=== PATIENT | female | born 1960 | race Caucasian/White ===

== ENCOUNTER → 2016-06-15 | Outpatient (REF) | payer BC, OTHER | LOC: M LAB REF 16:26 | PROVIDERS: ATTEND Physician Assistant | DX: R30.0 Dysuria (principal) ==

== ENCOUNTER → 2016-09-11 | Outpatient (CLI) | payer OTHER ==
[2016-09-11 13:49] LABS: BASO % 0.7 % (0.0-1.0); EOS # 0.1 K/mm3 (0.0-0.50); EOS % 1.9 % (0.0-3.0); LARGE UNSTAINED CELL # 0.1 K/mm3 (0.0-0.4); LARGE UNSTAINED CELL % 1.3 % (0.0-4.0); LYMPH # 1.7 K/mm3 (1.5-4.5); LYMPH % 28.6 % (24.0-44.0); MEAN CORPUSCULAR HEMOGLOBIN 31.3 pg (27.0-33.0); MEAN CORPUSCULAR HGB CONC 32.7 g/dl (32.0-36.5); MEAN CORPUSCULAR VOLUME 95.6 fl (80.0-96.0); MONO # 0.3 K/mm3 (0.0-0.8); NEUTROPHILS # 3.6 K/mm3 (1.8-7.7); NEUTROPHILS % 62.5 % (36.0-66.0); PLATELET COUNT, AUTOMATED 244 k/mm3 (150-450); RED CELL DISTRIBUTION WIDTH 12.4 % (11.5-14.5); WHITE BLOOD COUNT 5.7 K/mm3 (4.0-10.0)
[2016-09-11 14:07] LABS: ALBUMIN 3.8 GM/DL (3.2-5.2); ALBUMIN/GLOBULIN RATIO 1.23 (1.00-1.93); ALKALINE PHOSPHATASE 113 U/L (45-117); ALT/SGPT 21 U/L (12-78); ANION GAP 7 MEQ/L (8-16); AST/SGOT 19 U/L (15-37); BILIRUBIN,TOTAL 0.3 MG/DL (0.2-1.0); BLOOD UREA NITROGEN 15 MG/DL (7-18); CARBON DIOXIDE LEVEL 30 MEQ/L (21-32); CHLORIDE LEVEL 104 MEQ/L (98-107); CHOLESTEROL LEVEL 215 MG/DL (<200); CREATININE FOR GFR 0.83 MG/DL (0.55-1.02); GLOMERULAR FILTRATION RATE > 60.0 (>51); GLUCOSE, FASTING 103 MG/DL (70-105); POTASSIUM SERUM 4.7 MEQ/L (3.5-5.1); SODIUM LEVEL 141 MEQ/L (136-145); TOTAL PROTEIN 6.9 GM/DL (6.4-8.2); TRIGLYCERIDES LEVEL 195 MG/DL (<150)
== END ==
LOC: M WUC 08:48
PROVIDERS: ATTEND Nurse Practitioner Family
DX: I10 Essential (primary) hypertension (principal); E78.5 Hyperlipidemia, unspecified; E55.9 Vitamin D deficiency, unspecified

== ENCOUNTER → 2016-11-11 | Outpatient (REF) | payer OTHER | LOC: M LAB REF 17:37 | PROVIDERS: ATTEND Physician Assistant | DX: J02.9 Acute pharyngitis, unspecified (principal) ==

== ENCOUNTER → 2016-11-25 | Outpatient (REF) | payer OTHER | LOC: M LAB REF 17:16 | PROVIDERS: ATTEND Physician Assistant | DX: R30.0 Dysuria (principal) ==

== ENCOUNTER → 2017-03-19 | Outpatient (CLI) | payer OTHER | LOC: M WUC 10:11 | PROVIDERS: ATTEND Nurse Practitioner Family | DX: E78.5 Hyperlipidemia, unspecified (principal); E55.9 Vitamin D deficiency, unspecified ==

== ENCOUNTER 2017-06-03 19:00 | Observation (INO) | payer OTHER ==
[2017-06-03 19:42] LABS: BASO % 0.1 % (0.0-1.0); EOS # 0.1 10^3/uL (0.0-0.50); HEMATOCRIT 43.2 % (36.0-47.0); HEMOGLOBIN 14.7 g/dl (12.0-16.0); IMMATURE GRANULOCYTE # 0.1 10^3/uL (0-0); IMMATURE GRANULOCYTE % 0.4 % (0-0); LYMPH # 2.7 10^3/uL (1.5-4.5); LYMPH % 19.2 % (24.0-44.0); MEAN CORPUSCULAR HEMOGLOBIN 30.6 pg (27.0-33.0); MEAN CORPUSCULAR VOLUME 89.8 fl (80.0-96.0); MONO # 0.8 10^3/uL (0.0-0.8); NEUTROPHILS # 10.1 10^3/uL (1.8-7.7); NEUTROPHILS % 73.3 % (36.0-66.0); PLATELET COUNT, AUTOMATED 271 10^3/uL (150-450); RED BLOOD COUNT 4.81 10^6/uL (4.00-5.40); RED CELL DISTRIBUTION WIDTH 12.6 % (11.5-14.5); WHITE BLOOD COUNT 13.8 10^3/uL (4.0-10.0)
[2017-06-03 19:59] LABS: INR 0.92; PROTHROMBIN TIME 12.4 SECONDS (12.4-14.5)
[2017-06-03 20:09] LABS: ALBUMIN 4.1 GM/DL (3.2-5.2); ALBUMIN/GLOBULIN RATIO 1.05 (1.00-1.93); ALKALINE PHOSPHATASE 126 U/L (45-117); ALT/SGPT 24 U/L (12-78); ANION GAP 13 MEQ/L (8-16); AST/SGOT 26 U/L (7-37); BILIRUBIN,DIRECT < 0.1 MG/DL (0.0-0.2); BILIRUBIN,TOTAL 0.4 MG/DL (0.2-1.0); BLOOD UREA NITROGEN 35 MG/DL (7-18); CALCIUM LEVEL 9.9 MG/DL (8.5-10.1); CARBON DIOXIDE LEVEL 24 MEQ/L (21-32); CHLORIDE LEVEL 97 MEQ/L (98-107); CPK CREATINE PHOSPHOKINASE 111 U/L (26-192); CREATININE FOR GFR 1.23 MG/DL (0.55-1.30); GLOMERULAR FILTRATION RATE 48.1 (>51); GLUCOSE, FASTING 124 MG/DL (70-100); LIPASE 140 U/L (73-393); POTASSIUM SERUM 3.5 MEQ/L (3.5-5.1); SODIUM LEVEL 134 MEQ/L (136-145); TROPONIN I < 0.02 NG/ML (< 0.10)
[2017-06-03 20:12] LABS: LACTIC ACID SEPSIS PROTOCOL 3.1 MMOL/L (0.4-2.0)
[2017-06-03 20:14] LABS: CK-MB VALUE MASS 1.2 NG/ML (0.0-3.6); MB/CK RELATIVE INDEX 1.08 (< OR =4)
[2017-06-03] MEDS: ONDANSETRON 4MG/2ML VIAL (J2405) IV ×2 (20:30)
[2017-06-03] MEDS: DILUENT IV (20:36)
[2017-06-03] MEDS: NS IV (20:36)
[2017-06-03] MEDS: MORPHINE 4 MG/ML 1ML VIAL (J2270) IV ×6 (20:36→23:21)
[2017-06-03] MEDS ORDERED: ISOVUE-370 76% 100ML VIAL (Q9967) As Ordered ×2 (21:01)
[2017-06-03 21:50] LABS: KETONE, URINE AUTO RFX TRACE mg/dL (NEGATIVE); MUCUS, URINE RFX SMALL (NEGATIVE); NITRITE, URINE AUTO RFX NEGATIVE (NEGATIVE); RBC, URINE AUTO RFX 1 /HPF (0-3); SPECIFIC GRAVITY UR AUTO RFX 1.019 (1.002-1.035); SQUAM EPITHELIAL CELL UR AURFX 0 /HPF (0-6); WBC, URINE AUTO RFX 1 /HPF (0-3)
[2017-06-03 21:54] LABS: LEUKOCYTE ESTERASE UR AUTO RFX TRACE (NEGATIVE)
[2017-06-03] MEDS ORDERED: MORPHINE 4 MG/ML 1ML VIAL (J2270) As Ordered ×2 (22:32)
[2017-06-03] MEDS: HYOSCYAMINE SULFATE 0.125 MG SUBL TABLET PO ×2 (23:07)
[2017-06-04] MEDS: NS 1,000 ML IV ×6 (01:56→21:56)
[2017-06-04] MEDS: MORPHINE 4 MG/ML 1ML VIAL (J2270) IV ×2 (05:27)
[2017-06-04] MEDS: ONDANSETRON 4MG/2ML VIAL (J2405) IV ×2 (07:20)
[2017-06-04] MEDS: PANTOPRAZOLE 40MG INJ (PROTONIX) (C9113) IV ×4 (07:36→21:34)
[2017-06-04] MEDS: LISINOPRIL 40 MG TAB PO ×2 (08:45)
[2017-06-04] MEDS: busPIRone 10 MG TAB PO ×2 (08:47)
[2017-06-04] MEDS: amLODIPine 10 MG TAB PO ×2 (08:47)
[2017-06-04] MEDS: ENOXAPARIN 40 MG/0.4 ML SYRINGE (J1650) SC ×2 (08:48)
[2017-06-04] MEDS: METOPROLOL TART 25 MG TABLET PO ×4 (08:48→21:36)
[2017-06-04] MEDS: ACETAMINOPHEN TAB 650MG DOSE (2X325MG) PO ×2 (16:13)
[2017-06-04] MEDS: SIMVASTATIN 40 MG TAB PO ×2 (21:34)
[2017-06-04] MEDS: FLUoxetine 20 MG CAP PO ×2 (21:35)
[2017-06-05 07:04] LABS: BASO % 0.3 % (0.0-1.0); EOS # 0.1 10^3/uL (0.0-0.50); EOS % 2.4 % (0.0-3.0); HEMATOCRIT 38.1 % (36.0-47.0); IMMATURE GRANULOCYTE % 0.2 % (0-0); LYMPH # 2.1 10^3/uL (1.5-4.5); LYMPH % 35.2 % (24.0-44.0); MEAN CORPUSCULAR VOLUME 93.6 fl (80.0-96.0); MONO # 0.4 10^3/uL (0.0-0.8); MONO % 6.5 % (0.0-5.0); NEUTROPHILS # 3.2 10^3/uL (1.8-7.7); NEUTROPHILS % 55.4 % (36.0-66.0); PLATELET COUNT, AUTOMATED 224 10^3/uL (150-450); RED BLOOD COUNT 4.07 10^6/uL (4.00-5.40); RED CELL DISTRIBUTION WIDTH 12.9 % (11.5-14.5); WHITE BLOOD COUNT 5.8 10^3/uL (4.0-10.0)
[2017-06-05 07:11] LABS: HEMOGLOBIN 12.2 g/dl (12.0-16.0)
[2017-06-05 07:26] LABS: ANION GAP 7 MEQ/L (8-16); BLOOD UREA NITROGEN 13 MG/DL (7-18); CALCIUM LEVEL 8.7 MG/DL (8.5-10.1); CARBON DIOXIDE LEVEL 29 MEQ/L (21-32); CHLORIDE LEVEL 107 MEQ/L (98-107); CREATININE FOR GFR 0.97 MG/DL (0.55-1.30); GLOMERULAR FILTRATION RATE > 60.0 (>51); GLUCOSE, FASTING 114 MG/DL (70-100); POTASSIUM SERUM 4.2 MEQ/L (3.5-5.1); SODIUM LEVEL 143 MEQ/L (136-145)
[2017-06-05] MEDS: ACETAMINOPHEN TAB 650MG DOSE (2X325MG) PO ×2 (09:17)
[2017-06-05] MEDS: busPIRone 10 MG TAB PO ×2 (09:18)
[2017-06-05] MEDS: amLODIPine 10 MG TAB PO ×2 (09:18)
[2017-06-05] MEDS: METOPROLOL TART 25 MG TABLET PO ×4 (09:18→21:13)
[2017-06-05] MEDS: ENOXAPARIN 40 MG/0.4 ML SYRINGE (J1650) SC ×2 (09:18)
[2017-06-05] MEDS: LISINOPRIL 40 MG TAB PO ×2 (09:18)
[2017-06-05] MEDS: PANTOPRAZOLE 40MG INJ (PROTONIX) (C9113) IV ×2 (09:18)
[2017-06-05] MEDS: MIRALAX *UNIT DOSE* 17GM PACKET PO ×2 (12:55)
[2017-06-05 13:14] LABS: ALBUMIN 3.4 GM/DL (3.2-5.2); ALKALINE PHOSPHATASE 87 U/L (45-117); ALT/SGPT 17 U/L (12-78); AST/SGOT 17 U/L (7-37); BILIRUBIN,DIRECT < 0.1 MG/DL (0.0-0.2); BILIRUBIN,TOTAL 0.2 MG/DL (0.2-1.0); TOTAL PROTEIN 6.5 GM/DL (6.4-8.2)
[2017-06-05] MEDS: SIMVASTATIN 40 MG TAB PO ×2 (21:13)
[2017-06-05] MEDS: PANTOPRAZOLE 40MG TAB (PROTONIX) PO ×2 (21:13)
[2017-06-05] MEDS: FLUoxetine 20 MG CAP PO ×2 (21:13)
[2017-06-06] MEDS: ACETAMINOPHEN TAB 650MG DOSE (2X325MG) PO ×2 (03:34)
[2017-06-06 06:08] LABS: BASO % 0.5 % (0.0-1.0); EOS # 0.2 10^3/uL (0.0-0.50); EOS % 3.3 % (0.0-3.0); HEMATOCRIT 37.5 % (36.0-47.0); HEMOGLOBIN 12.5 g/dl (12.0-16.0); IMMATURE GRANULOCYTE % 0.2 % (0-3.0); LYMPH # 1.8 10^3/uL (1.5-4.5); LYMPH % 33.2 % (24.0-44.0); MEAN CORPUSCULAR HEMOGLOBIN 30.9 pg (27.0-33.0); MEAN CORPUSCULAR HGB CONC 33.3 g/dl (32.0-36.5); MEAN CORPUSCULAR VOLUME 92.6 fl (80.0-96.0); MONO # 0.4 10^3/uL (0.0-0.8); MONO % 7.3 % (0.0-5.0); NEUTROPHILS % 55.5 % (36.0-66.0); PLATELET COUNT, AUTOMATED 192 10^3/uL (150-450); RED BLOOD COUNT 4.05 10^6/uL (4.00-5.40); RED CELL DISTRIBUTION WIDTH 12.7 % (11.5-14.5); WHITE BLOOD COUNT 5.5 10^3/uL (4.0-10.0)
[2017-06-06 06:28] LABS: ANION GAP 9 MEQ/L (8-16); BLOOD UREA NITROGEN 10 MG/DL (7-18); CALCIUM LEVEL 8.8 MG/DL (8.5-10.1); CARBON DIOXIDE LEVEL 29 MEQ/L (21-32); CHLORIDE LEVEL 105 MEQ/L (98-107); CREATININE FOR GFR 0.87 MG/DL (0.55-1.30); GLOMERULAR FILTRATION RATE > 60.0 (>51); GLUCOSE, FASTING 116 MG/DL (70-100); POTASSIUM SERUM 4.2 MEQ/L (3.5-5.1); SODIUM LEVEL 143 MEQ/L (136-145)
[2017-06-06] MEDS: MIRALAX *UNIT DOSE* 17GM PACKET PO ×2 (09:17)
[2017-06-06] MEDS: MOM 30ML SUSPENSION UDC PO ×2 (09:17)
[2017-06-06] MEDS: PANTOPRAZOLE 40MG TAB (PROTONIX) PO ×2 (09:17)
[2017-06-06] MEDS: LISINOPRIL 40 MG TAB PO ×2 (09:17)
[2017-06-06] MEDS: busPIRone 10 MG TAB PO ×2 (09:18)
[2017-06-06] MEDS: amLODIPine 10 MG TAB PO ×2 (09:18)
[2017-06-06] MEDS: METOPROLOL TART 25 MG TABLET PO ×2 (09:18)
[2017-06-06] MEDS: ENOXAPARIN 40 MG/0.4 ML SYRINGE (J1650) SC ×2 (09:19)
== END 2017-06-06 11:23 | disposition home or self-care (01) ==
LOC: M ED INP 06-04 01:56 → M MS4PR 06-04 14:00 → M ED 19:00
DX: R10.13 Epigastric pain (principal); K80.20 Calculus of gallbladder without cholecystitis without obstruction; K83.8 Other specified diseases of biliary tract; K59.00 Constipation, unspecified; E87.2 Acidosis; D72.829 Elevated white blood cell count, unspecified; K76.0 Fatty (change of) liver, not elsewhere classified; R93.3 Abnormal findings on diagnostic imaging of other parts of digestive tract; I10 Essential (primary) hypertension; F32.9 Major depressive disorder, single episode, unspecified; F41.9 Anxiety disorder, unspecified; E66.01 Morbid (severe) obesity due to excess calories; E78.5 Hyperlipidemia, unspecified; Z79.899 Other long term (current) drug therapy; Z87.891 Personal history of nicotine dependence
CPT/HCPCS: C9113

== ENCOUNTER → 2017-07-02 | Outpatient (CLI) | payer OTHER ==
[2017-07-02 12:13] LABS: HEMATOCRIT 41.6 % (36.0-47.0); HEMOGLOBIN 13.2 g/dl (12.0-16.0); MEAN CORPUSCULAR HEMOGLOBIN 30.1 pg (27.0-33.0); MEAN CORPUSCULAR HGB CONC 31.7 g/dl (32.0-36.5); MEAN CORPUSCULAR VOLUME 94.8 fl (80.0-96.0); PLATELET COUNT, AUTOMATED 224 10^3/uL (150-450); RED BLOOD COUNT 4.39 10^6/uL (4.00-5.40); RED CELL DISTRIBUTION WIDTH 13.1 % (11.5-14.5); WHITE BLOOD COUNT 5.5 10^3/uL (4.0-10.0)
[2017-07-02 12:24] LABS: ALBUMIN 3.9 GM/DL (3.2-5.2); ALBUMIN/GLOBULIN RATIO 1.18 (1.00-1.93); ALKALINE PHOSPHATASE 107 U/L (45-117); ALT/SGPT 21 U/L (12-78); ANION GAP 8 MEQ/L (8-16); AST/SGOT 21 U/L (7-37); BILIRUBIN,TOTAL 0.3 MG/DL (0.2-1.0); BLOOD UREA NITROGEN 14 MG/DL (7-18); CALCIUM LEVEL 8.9 MG/DL (8.5-10.1); CARBON DIOXIDE LEVEL 28 MEQ/L (21-32); CHLORIDE LEVEL 107 MEQ/L (98-107); CHOLESTEROL LEVEL 199 MG/DL (<200); GLOMERULAR FILTRATION RATE > 60.0 (>51); GLUCOSE, FASTING 106 MG/DL (70-100); HDL CHOLESTEROL 67 MG/DL (>40); NON-HDL-C 132 MG/DL; POTASSIUM SERUM 4.1 MEQ/L (3.5-5.1); SODIUM LEVEL 143 MEQ/L (136-145); TOTAL PROTEIN 7.2 GM/DL (6.4-8.2); TRIGLYCERIDES LEVEL 180 MG/DL (<150)
== END ==
LOC: M WUC 08:58
DX: I10 Essential (primary) hypertension (principal); E78.5 Hyperlipidemia, unspecified
CPT/HCPCS: 80053

== ENCOUNTER 2017-07-26 08:02 | Day surgery (SDC) | payer OTHER ==
[2017-07-26] MEDS ORDERED: fentaNYL 250 MCG/5 ML INJECTION (J3010) As Ordered (08:26)
[2017-07-26] MEDS ORDERED: LIDOCAINE 2% INJ 100 MG/5 ML SDV (FOR ANES.) As Ordered (08:26)
[2017-07-26] MEDS ORDERED: MIDAZOLAM INJ 2 MG/2 ML VIAL (J2250) As Ordered (08:26)
[2017-07-26] MEDS ORDERED: PROPOFOL 200 MG/20 ML VIAL As Ordered (08:26)
[2017-07-26] MEDS ORDERED: ROCURONIUM BROMIDE 50 MG/5 ML VIAL As Ordered (08:26)
[2017-07-26] MEDS ORDERED: LIDOCAINE 1% MDV 20ML VIAL SQ (08:30)
[2017-07-26] MEDS: LR 1,000 ML IV (08:40)
[2017-07-26] MEDS: METOPROLOL TART 25 MG TABLET PO (09:43)
[2017-07-26] MEDS ORDERED: METOPROLOL TART 25 MG TABLET As Ordered (09:44)
[2017-07-26] MEDS ORDERED: NEOSTIGMINE 10 MG/10 ML VIAL (J2710) As Ordered (11:11)
[2017-07-26] MEDS ORDERED: GLYCOPYRROLATE INJ 0.2 MG/ML 2 ML VIAL As Ordered (11:11)
[2017-07-26] MEDS ORDERED: dexameTHASONE 4 MG/ML 1ML VIAL (J1100) As Ordered ×2 (11:13)
[2017-07-26] MEDS ORDERED: METOCLOPRAMIDE INJ 10MG/2ML VIAL (J2765) As Ordered (11:13)
[2017-07-26] MEDS ORDERED: ONDANSETRON 4MG/2ML VIAL (J2405) As Ordered (11:13)
[2017-07-26] MEDS ORDERED: KETOROLAC 60 MG/2 ML VIAL (J1885) As Ordered (11:13)
[2017-07-26] MEDS ORDERED: fentaNYL 100 MCG/2 ML INJECTION (J3010) As Ordered ×2 (11:27→11:49)
[2017-07-26] MEDS: BUPIVACAINE/EPIN 0.5% 30 ML VIAL As Ordered (11:29)
[2017-07-26] MEDS: fentaNYL 100 MCG/2 ML INJECTION (J3010) IV ×4 (11:45→12:00)
[2017-07-26] MEDS ORDERED: NORCO, ANEXSIA 5/325MG TABLET (HYDROcodone/ACETAMINOPHEN) As Ordered (12:06)
[2017-07-26] MEDS: NORCO, ANEXSIA 5/325MG TABLET (HYDROcodone/ACETAMINOPHEN) PO (12:07)
[2017-07-26] MEDS ORDERED: LR 1,000 ML IV (12:15)
[2017-07-26] MEDS ORDERED: NORCO, ANEXSIA 5/325MG TABLET (HYDROcodone/ACETAMINOPHEN) PO (12:15)
[2017-07-26] MEDS ORDERED: ONDANSETRON 4MG/2ML VIAL (J2405) IV (12:15)
== END 2017-07-26 14:00 | disposition home or self-care (01) ==
LOC: M SDC 08:02
DX: K80.20 Calculus of gallbladder without cholecystitis without obstruction (principal); I10 Essential (primary) hypertension; Z79.899 Other long term (current) drug therapy; R06.83 Snoring
CPT/HCPCS: 47562

== ENCOUNTER 2017-08-28 07:37 | Day surgery (SDC) | payer OTHER ==
[~2017-08-28 07:37] MED LIST: LIDOCAINE 2% INJ 100 MG/5 ML SDV (FOR ANES.) As Ordered; PROPOFOL 200 MG/20 ML VIAL As Ordered
[2017-08-28] MEDS: NS 1,000 ML IV (07:51)
[2017-08-28] MEDS ORDERED: PROPOFOL 200 MG/20 ML VIAL As Ordered ×2 (08:37→08:45)
[2017-08-28] MEDS ORDERED: ONDANSETRON 4MG/2ML VIAL (J2405) As Ordered (08:51)
== END 2017-08-28 09:31 | disposition home or self-care (01) ==
LOC: M OPP 07:37
DX: K64.1 Second degree hemorrhoids (principal); D12.5 Benign neoplasm of sigmoid colon; D12.2 Benign neoplasm of ascending colon; K57.30 Diverticulosis of large intestine without perforation or abscess without bleeding; K92.1 Melena; K80.20 Calculus of gallbladder without cholecystitis without obstruction; F32.9 Major depressive disorder, single episode, unspecified; R06.83 Snoring; Z79.899 Other long term (current) drug therapy; Z87.891 Personal history of nicotine dependence; Z78.0 Asymptomatic menopausal state; Z91.89 Other specified personal risk factors, not elsewhere classified; Z98.890 Other specified postprocedural states; Z80.0 Family history of malignant neoplasm of digestive organs; Z82.49 Family history of ischemic heart disease and other diseases of the circulatory system
CPT/HCPCS: 45385

== ENCOUNTER → 2018-01-07 | Outpatient (REF) | payer OTHER ==
[2018-01-07 11:25] LABS: HEMATOCRIT 40.7 % (36.0-47.0); HEMOGLOBIN 13.3 g/dl (12.0-15.5); MEAN CORPUSCULAR HEMOGLOBIN 31.5 pg (27.0-33.0); MEAN CORPUSCULAR HGB CONC 32.7 g/dl (32.0-36.5); MEAN CORPUSCULAR VOLUME 96.4 fl (80.0-96.0); PLATELET COUNT, AUTOMATED 250 10^3/uL (150-450); RED BLOOD COUNT 4.22 10^6/uL (4.00-5.40); WHITE BLOOD COUNT 6.5 10^3/uL (4.0-10.0)
[2018-01-07 12:21] LABS: ERYTHROCYTE SEDIMENTATION RATE 29 mm/hr (0-30)
[2018-01-07 12:38] LABS: ALBUMIN 4.2 GM/DL (3.2-5.2); ALKALINE PHOSPHATASE 124 U/L (45-117); ALT/SGPT 45 U/L (12-78); ANION GAP 11 MEQ/L (8-16); AST/SGOT 43 U/L (7-37); BILIRUBIN,TOTAL 0.4 MG/DL (0.2-1.0); BLOOD UREA NITROGEN 25 MG/DL (7-18); CALCIUM LEVEL 9.9 MG/DL (8.5-10.1); CARBON DIOXIDE LEVEL 25 MEQ/L (21-32); CHLORIDE LEVEL 104 MEQ/L (98-107); CHOLESTEROL LEVEL 237 MG/DL (<200); CHOLESTEROL RISK RATIO 2.821 (<5); CREATININE FOR GFR 1.01 MG/DL (0.55-1.30); FREE THYROXINE INDEX 3.8 % (1.3-4.8); GLOMERULAR FILTRATION RATE > 60.0 (>51); GLUCOSE, FASTING 111 MG/DL (70-100); HDL CHOLESTEROL 84 MG/DL (>40); LDL CHOLESTEROL 93 MG/DL (<100); NON-HDL-C 153 MG/DL; POTASSIUM SERUM 4.5 MEQ/L (3.5-5.1); RHEUMATOID FACTOR QUANT < 10.0 IU/ML (<15.0); SODIUM LEVEL 140 MEQ/L (136-145); T UPTAKE 30 % (30-39); THYROID STIMULATING HORMONE 0.886 uIU/ML (0.358-3.740); THYROXINE (T4) 12.5 UG/DL (4.5-12.0); TOTAL 25(OH) VITAMIN D 43.6 NG/ML (30.0-100.0); TOTAL PROTEIN 7.5 GM/DL (6.4-8.2); TRIGLYCERIDES LEVEL 302 MG/DL (<150)
[2018-01-07 13:49] LABS: ALBUMIN/GLOBULIN RATIO 1.27 (1.00-1.93)
[2018-01-08 14:19] LABS: ANTINUCLEAR ANTIBODIES DIRECT Negative (Negative)
== END ==
LOC: M SFHCCLAY 08:24
DX: M25.50 Pain in unspecified joint (principal); E78.5 Hyperlipidemia, unspecified; E55.9 Vitamin D deficiency, unspecified; G47.00 Insomnia, unspecified
CPT/HCPCS: 84443

== ENCOUNTER → 2018-01-29 | Outpatient (REF) | payer OTHER ==
[2018-01-29 12:25] LABS: MAGNESIUM LEVEL 2.2 MG/DL (1.8-2.4)
[2018-01-29 12:25] LABS: URIC ACID 9.5 MG/DL (2.6-6.0)
[2018-01-31 00:09] LABS: ANA (HEP2) Negative (.); Lyme Disease IgG/IgM Antibodie <0.91 ISR (0.00-0.90); Lyme Disease IgM Ab Quantitati <0.80 index (0.00-0.79)
== END ==
LOC: M SFHCCLAY 08:45
DX: M25.50 Pain in unspecified joint (principal)

== ENCOUNTER → 2018-01-29 | Outpatient (CLI) | payer OTHER | LOC: M CLY 09:02 | DX: M25.579 Pain in unspecified ankle and joints of unspecified foot (principal); M17.0 Bilateral primary osteoarthritis of knee | CPT/HCPCS: 73564 ==

== ENCOUNTER → 2018-01-30 | Outpatient (CLI) | payer OTHER | LOC: M WHC 14:22 | DX: Z12.31 Encounter for screening mammogram for malignant neoplasm of breast (principal) ==

== ENCOUNTER → 2018-03-04 | Outpatient (REF) | payer OTHER | LOC: M SFHCCLAY 16:32 | DX: N39.0 Urinary tract infection, site not specified (principal) ==

== ENCOUNTER → 2018-03-10 | Outpatient (REF) | payer OTHER ==
[2018-03-10 11:50] LABS: URIC ACID 6.7 MG/DL (2.6-6.0)
== END ==
LOC: M SFHCCLAY 07:51
DX: M10.9 Gout, unspecified (principal)

== ENCOUNTER → 2018-05-08 | Outpatient (REF) | payer OTHER ==
[~2018-05-08] MED LIST changes: +AMLO10TA5 PO; +BUSP10TA PO; +FLUO20CA8 PO; +HYDR25TAB PO; -LIDOCAINE 2% INJ 100 MG/5 ML SDV (FOR ANES.) As Ordered; +LISI40TA PO; +METO25TA4 PO; +PANT40TA3 PO; -PROPOFOL 200 MG/20 ML VIAL As Ordered; +SIMV40TA2 PO; +TYLE500T78 PO
[2018-05-08 12:27] LABS: ALBUMIN 4.1 GM/DL (3.2-5.2); BILIRUBIN,TOTAL 0.3 MG/DL (0.2-1.0); CALCIUM LEVEL 9.5 MG/DL (8.5-10.1); CHOLESTEROL RISK RATIO 3.555 (<5); CREATININE FOR GFR 1.38 MG/DL (0.55-1.30); POTASSIUM SERUM 4.6 MEQ/L (3.5-5.1); TOTAL PROTEIN 7.6 GM/DL (6.4-8.2); URIC ACID 8.1 MG/DL (2.6-6.0)
[2018-05-08 12:33] LABS: TOTAL 25(OH) VITAMIN D 46.2 NG/ML (30.0-100.0)
== END ==
LOC: M SFHCCLAY 08:04
PROVIDERS: ATTEND Nurse Practitioner Family
DX: R35.0 Frequency of micturition (principal); I10 Essential (primary) hypertension; E78.5 Hyperlipidemia, unspecified; M10.9 Gout, unspecified; E55.9 Vitamin D deficiency, unspecified

== ENCOUNTER → 2018-05-14 | Outpatient (CLI) | payer OTHER ==
--- NOTE | 2018-05-15 00:58 | REP ---
Clinical: Pain with recent trauma. Technique: AP and lateral views of the left tibia / fibula. Findings: Mild degenerative changes at the knee and ankle joint are appreciated. Small corticated fragments at the ankle suggest old trauma. No acute fracture or dislocation identified. No subcutaneous emphysema or radiodense foreign body. Impression: Degenerative changes at the knee and ankle with suggestions for old ankle injury. No acute fracture or dislocation identified.
== END ==
LOC: M CLY 12:38
PROVIDERS: ATTEND Nurse Practitioner Family
DX: M17.12 Unilateral primary osteoarthritis, left knee (principal); S89.92XA Unspecified injury of left lower leg, initial encounter; X58.XXXA Exposure to other specified factors, initial encounter; Y92.9 Unspecified place or not applicable

== ENCOUNTER → 2018-05-22 | Outpatient (REF) | payer OTHER | LOC: M SFHCCLAY 07:59 | PROVIDERS: ATTEND Nurse Practitioner Family | DX: N39.0 Urinary tract infection, site not specified (principal) ==

== ENCOUNTER → 2018-06-10 | Outpatient (CLI) | payer OTHER ==
--- NOTE | 2018-06-10 13:31 | REP ---
RENAL ULTRASOUND: Real-time sonographic evaluation of the kidneys are performed. The kidneys are normal in size and echotexture, right kidney measuring 11.2 x 4.7 x 4.8 cm and left kidney 11.9 x 6.0 x 6.4 cm. There is no hydronephrosis or renal mass bilaterally. Study is limited due to patient body habitus. Urinary bladder is empty. IMPRESSION: Grossly negative renal ultrasound. Electronically Signed by Milton Rodriguez MD 06/10/2018 05:26 P
== END ==
LOC: M RAD 11:53
PROVIDERS: ATTEND Internal Medicine Nephrology
DX: N18.3 Chronic kidney disease, stage 3 (moderate) (principal); I12.9 Hypertensive chronic kidney disease with stage 1 through stage 4 chronic kidney disease, or unspecified chronic kidney disease

== ENCOUNTER → 2018-08-01 | Outpatient (REF) | payer OTHER ==
[2018-08-01 18:08] LABS: CHOLESTEROL RISK RATIO 3.2 (<5); URIC ACID 8.8 MG/DL (2.6-6.0)
[2018-08-01 18:13] LABS: TOTAL 25(OH) VITAMIN D 51.4 NG/ML (30.0-100.0)
[2018-08-01 19:00] LABS: HEMOGLOBIN A1c 6.7 %
== END ==
LOC: M SFHCCLAY 10:01
PROVIDERS: ATTEND Nurse Practitioner Family
DX: R73.9 Hyperglycemia, unspecified (principal); E78.5 Hyperlipidemia, unspecified; M10.9 Gout, unspecified; E55.9 Vitamin D deficiency, unspecified

== ENCOUNTER → 2018-09-23 | Outpatient (REF) | payer OTHER ==
[2018-09-23 18:25] LABS: BASO % 0.4 % (0.0-1.0); EOS # 0.1 10^3/uL (0.0-0.50); EOS % 1.5 % (0.0-3.0); HEMATOCRIT 42.4 % (36.0-47.0); HEMOGLOBIN 13.1 g/dl (12.0-15.5); LYMPH # 2.2 10^3/uL (1.5-4.5); LYMPH % 33.3 % (24.0-44.0); MEAN CORPUSCULAR HEMOGLOBIN 30.4 pg (27.0-33.0); MEAN CORPUSCULAR HGB CONC 30.9 g/dl (32.0-36.5); MEAN CORPUSCULAR VOLUME 98.4 fl (80.0-96.0); MONO # 0.3 10^3/uL (0.0-0.8); MONO % 5.1 % (0.0-5.0); NEUTROPHILS % 59.4 % (36.0-66.0); PLATELET COUNT, AUTOMATED 257 10^3/uL (150-450); RED BLOOD COUNT 4.31 10^6/uL (4.00-5.40); WHITE BLOOD COUNT 6.7 10^3/uL (4.0-10.0)
== END ==
LOC: M LAB REF 17:08
PROVIDERS: ATTEND Internal Medicine Nephrology
DX: I12.9 Hypertensive chronic kidney disease with stage 1 through stage 4 chronic kidney disease, or unspecified chronic kidney disease (principal); N18.3 Chronic kidney disease, stage 3 (moderate)

== ENCOUNTER → 2018-11-07 | Outpatient (CLI) | payer OTHER ==
[~2018-11-07] MED LIST changes: +ACET-897 PO; +ATOR40TA75 PO; +DRIS50003 PO
[2018-11-07 13:45] LABS: HEMOGLOBIN A1c 7.2 %
[2018-11-07 13:49] LABS: ALBUMIN 3.9 GM/DL (3.2-5.2); BILIRUBIN,DIRECT 0.1 MG/DL (0.0-0.2); BILIRUBIN,TOTAL 0.5 MG/DL (0.2-1.0); CHOLESTEROL RISK RATIO 2.718 (<5); TOTAL PROTEIN 7.3 GM/DL (6.4-8.2); URIC ACID 9.3 MG/DL (2.6-6.0)
[2018-11-07 13:50] LABS: TOTAL 25(OH) VITAMIN D 49.9 NG/ML (30.0-100.0)
[2018-11-07 13:55] LABS: MALB URINE SIEMENS 12.3 MG/L; MAU/CREAT RATIO 5.8 MCG/MG (0.0-30.0)
== END ==
LOC: M WUC 08:21
PROVIDERS: ATTEND Nurse Practitioner Family
DX: E78.5 Hyperlipidemia, unspecified (principal)

== ENCOUNTER 2018-11-24 11:22 | Day surgery (SDC) | payer OTHER ==
[~2018-11-24] VITALS: Ht 170.2 cm; Wt 130.7 kg
[~2018-11-24 11:22] MED LIST changes: +LR 1,000 ML IV ONE; +ROPIvacaine 0.5% 30 ML INJECTION (J2795 PER 1MG) As Ordered ONE
[2018-11-24] MEDS ORDERED: ONDANSETRON 4MG/2ML VIAL (J2405) As Ordered ONE ×2 (11:42→12:19)
[2018-11-24] MEDS ORDERED: LIDOCAINE 2% INJ 100 MG/5 ML SDV (FOR ANES.) As Ordered ONE ×2 (11:42→12:19)
[2018-11-24] MEDS ORDERED: fentaNYL 100 MCG/2 ML INJECTION (J3010) As Ordered ONE ×2 (11:42→12:20)
[2018-11-24] MEDS ORDERED: dexameTHASONE 4 MG/ML 1ML VIAL (J1100) As Ordered ONE ×2 (11:42→12:19)
[2018-11-24] MEDS ORDERED: MIDAZOLAM INJ 2 MG/2 ML VIAL (J2250) As Ordered ONE ×2 (11:42→12:20)
[2018-11-24] MEDS ORDERED: PROPOFOL 200 MG/20 ML VIAL As Ordered ONE (12:19)
[2018-11-24] MEDS ORDERED: KETOROLAC 60 MG/2 ML VIAL (J1885) As Ordered ONE (12:19)
[2018-11-24] MEDS ORDERED: ACETAMINOPHEN 1000MG 100ML IV BTL (OFIRMEV) (J0131 PER 10MG) As Ordered ONE (13:39)
[2018-11-24] MEDS ORDERED: METOCLOPRAMIDE INJ 10MG/2ML VIAL (J2765) As Ordered ONE (13:42)
[2018-11-24] MEDS ORDERED: TRIAMCINOLONE ACETONIDE SUSP 40 MG/ML VIAL (J3301) As Ordered ONE (14:05)
[2018-11-24] MEDS ORDERED: LR 1,000 ML IV SCH ×2 (15:15→15:30)
[2018-11-24] MEDS ORDERED: fentaNYL 100 MCG/2 ML INJECTION (J3010) IV PRN (15:15)
[2018-11-24] MEDS ORDERED: oxyCODONE 5MG TAB PO PRN (15:15)
[2018-11-24] MEDS ORDERED: ONDANSETRON 4MG/2ML VIAL (J2405) IV PRN (15:15)
[2018-11-24] MEDS ORDERED: MEPERIDINE INJ 25 MG/ML VIAL (J2175) IV PRN (15:15)
[2018-11-24] MEDS ORDERED: METOCLOPRAMIDE INJ 10MG/2ML VIAL (J2765) IV PRN (15:15)
[2018-11-24 15:20] VITALS: BP 149/71
[2018-11-24] MEDS ORDERED: ACETAMINOPH W/CODEINE #3 TAB UD PO PRN ×2 (15:30)
--- NOTE | 2018-11-25 08:00 | RO ---
DATE OF PROCEDURE: 11/24/2018 PREOPERATIVE DIAGNOSES: Right knee osteoarthritis. Medial meniscus tear. POSTOPERATIVE DIAGNOSES: Right knee osteoarthritis. Medial meniscus tear. Lateral meniscus tear. PROCEDURE: Right knee operative arthroscopy, partial medial and lateral meniscectomy and joint debridement. SURGEON: Steve Garcia MD SUGGESTION CLERK: ANESTHESIA: General. ESTIMATED BLOOD LOSS: minimal COMPLICATIONS: None. INDICATIONS: This is a 58-year-old woman with morbid obesity who has had some knee pain. MRI scan was suggestive of some meniscus pathology and she had failed conservative management and wanted to go ahead with the trial of an arthroscopy. She has underlying arthritis and she knew that the prognosis was more limited as a result of this and due to her BMI in the mid 40s. She understood the nature this, the risks of bleeding, infection, damage to nerves, vessels, persistent pain, blood clots, medical problems, among others. PROCEDURE: The patient was taken to the operating room and placed in supine position after general anesthesia was induced. The right lower extremity was prepped and draped in the usual sterile fashion. A tourniquet had been placed and after a time out was performed, I inflated this, created inferomedial and inferolateral portals per routine. I identified patellofemoral joint which had some grade 2-3 changes. I proceeded down both gutters. The medial compartment had some osteophytes off the medial femoral condyle consistent with her medial compartment arthritis. I identified the medial meniscus. She had a complex medial meniscus tear that was difficult to get to due to her body habitus, but I was able to probe it, identify it, and then shave it back with a 4.2 shaver back to a stable rim. This was mostly a central and posterior horn tear, and was able to get it back to a much improved appearance. There were no remaining flaps or tears noted. The medial femoral condyle had a loose articular cartilage flap that was carefully removed. I proceeded to the notch. The ACL was unremarkable although there was some inflammation. Lateral probe was identified. She had a low fairly large mid body and anterior horn lateral meniscus tear that again was shaved back with a 4.2 shaver back to a stable rim. There was mild arthritic change in the lateral compartment. I was able to reprobe the meniscus. It was felt to be stable. No evidence of tear. I did have to debride a little bit of the fat pad for visualization. I went back to the patellofemoral joint, made sure there were no loose bodies and no obvious plica. Final irrigation was performed. I reexamined the meniscus irrigated, removed instrumentation, closed the portals using #3-0 nylon suture. Sterile dressing was applied. I did deflate the tourniquet part way through because there was some bleeding intra-articularly that made it hard to visualize and deflating the tourniquet actually improved my visualization some. Once I had closed the portals, I injected with Naropin with 20 mg of Kenalog. Sterile dressing was applied. She was taken to the recovery room in stable condition. There were no known complications. The plan will be routine postop.
== END 2018-11-24 15:46 | disposition home or self-care (01) ==
LOC: M SDC 11:22
PROVIDERS: ATTEND Orthopaedic Surgery
DX: M17.11 Unilateral primary osteoarthritis, right knee (principal); M23.251 Derangement of posterior horn of lateral meniscus due to old tear or injury, right knee; M23.241 Derangement of anterior horn of lateral meniscus due to old tear or injury, right knee; I10 Essential (primary) hypertension; E78.00 Pure hypercholesterolemia, unspecified; R06.83 Snoring; E66.9 Obesity, unspecified; Z68.42 Body mass index [BMI] 45.0-49.9, adult; Z86.59 Personal history of other mental and behavioral disorders; Z87.440 Personal history of urinary (tract) infections; Z87.891 Personal history of nicotine dependence
CPT/HCPCS: 29880; J0131; J0690; J1100; J1885; J2250; J2405; J2765; J2795; J3010; J3301

== ENCOUNTER 2019-01-11 10:18 | Emergency (ER) | payer OTHER ==
[~2019-01-11] VITALS: Ht 170.2 cm; Wt 128.2 kg
[~2019-01-11 10:18] MED LIST changes: -LR 1,000 ML IV ONE; -ROPIvacaine 0.5% 30 ML INJECTION (J2795 PER 1MG) As Ordered ONE
[2019-01-11 10:19] VITALS: BP 114/58
[2019-01-11] MEDS ORDERED: IBUPROFEN 800 MG TAB PO ONE (12:45)
--- NOTE | 2019-01-11 13:29 | REP ---
REASON: Pain. FINDINGS: No acute fracture or destructive osseous lesion. Degenerative changes seen involving the knee and ankle. Electronically Signed by Tyler De La Rosa DO 01/11/2019 02:21 P
--- NOTE | 2019-01-11 13:29 | REP ---
REASON: Pain, no trauma. COMPARISON: 01/29/2018 There is mild tricompartmental marginal osteophytosis, status quo. There is no acute fracture, dislocation, or subluxation. IMPRESSION: Stable-appearing degenerative changes. Electronically Signed by Tyler De LaR osa DO 01/11/2019 02:21 P
== END 2019-01-11 13:15 | disposition home or self-care (01) ==
LOC: M ED 10:18
DX: S83.91XA Sprain of unspecified site of right knee, initial encounter (principal); X50.0XXA Overexertion from strenuous movement or load, initial encounter; Y92.099 Unspecified place in other non-institutional residence as the place of occurrence of the external cause; M25.761 Osteophyte, right knee; I10 Essential (primary) hypertension; F41.1 Generalized anxiety disorder; F32.9 Major depressive disorder, single episode, unspecified; Z79.01 Long term (current) use of anticoagulants; Z79.899 Other long term (current) drug therapy

== ENCOUNTER → 2019-02-10 | Outpatient (CLI) | payer OTHER ==
--- NOTE | 2019-02-11 12:05 | REP ---
MRI RIGHT KNEE WITHOUT CONTRAST: HISTORY: Pain in the right knee. Comparison knee radiographs are from January 11, 2019. TECHNIQUE: Axial, coronal, and sagittal imaging planes utilized. T1- and T2-weighted scans were obtained with and without fat saturation. MRI FINDINGS: There is a mild diffuse subcutaneous edema pattern. There is a moderate sized Godwin's cyst in the posteromedial popliteal soft tissues. This measures 6.8 cm in craniocaudal span. There is a small joint effusion. Bone signal intensity is normal. Patellar and quadriceps tendons are intact. Anterior and posterior cruciate ligaments show no evidence of disruption. There is no evidence of medial or lateral collateral ligament disruption. There is a complex tear in the anterior horn of the medial meniscus oriented principally horizontally. There is some anteromedial meniscal extrusion associated with this. This extends the mid body level where there is decrease in the overall size of the meniscus. No displaced meniscal material is appreciated. There is increased signal intensity centrally in the posterior horn of the medial meniscus. There is an irregular tear of the anterior horn of the lateral meniscus. There is moderate to marked chondromalacia in the medial compartment of both the medial femoral condyle and the medial tibial plateau side of the articulation with nearly full-thickness articular cartilage thinning. There is mild chondromalacia change in the central patellar articular cartilage. Moderate cartilage irregularity and heterogeneous signal is seen in the lateral tibial plateau as well. There is early osteoarthritic spurring in the medial and lateral tibiofemoral compartments. IMPRESSION: Complex tears of both medial and lateral menisci. Godwin's cyst small joint effusion. 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 Diffuse subcutaneous edema. Electronically Signed by Osmin Marquis MD 02/11/2019 01:49 P
== END ==
LOC: M RAD 16:31
PROVIDERS: ATTEND Physician Assistant
DX: S83.271A Complex tear of lateral meniscus, current injury, right knee, initial encounter (principal); S83.231A Complex tear of medial meniscus, current injury, right knee, initial encounter; M94.261 Chondromalacia, right knee; M71.21 Synovial cyst of popliteal space [Baker], right knee; M25.761 Osteophyte, right knee

== ENCOUNTER → 2019-02-13 | Outpatient (CLI) | payer OTHER ==
[2019-02-13 12:12] LABS: CHOLESTEROL RISK RATIO 2.506 (<5); URIC ACID 7.8 MG/DL (2.6-6.0)
[2019-02-13 12:18] LABS: TOTAL 25(OH) VITAMIN D 34.4 NG/ML (30.0-100.0)
== END ==
LOC: M WUC 08:36
PROVIDERS: ATTEND Nurse Practitioner Family
DX: E78.5 Hyperlipidemia, unspecified (principal); M10.9 Gout, unspecified; E55.9 Vitamin D deficiency, unspecified; E08.69 Diabetes mellitus due to underlying condition with other specified complication

== ENCOUNTER → 2019-02-25 | Outpatient (CLI) | payer OTHER ==
[2019-02-25 11:01] LABS: CALCIUM LEVEL 9.9 MG/DL (8.5-10.1); CREATININE FOR GFR 1.39 MG/DL (0.55-1.30); GLOMERULAR FILTRATION RATE 41.5 (>51); POTASSIUM SERUM 4.8 MEQ/L (3.5-5.1)
== END ==
LOC: M WUC 08:05
PROVIDERS: ATTEND Orthopaedic Surgery
DX: Z79.899 Other long term (current) drug therapy (principal)

== ENCOUNTER 2019-04-27 07:27 | Day surgery (SDC) | payer OTHER ==
[~2019-04-27] VITALS: Ht 170.2 cm; Wt 137.3 kg
[~2019-04-27 07:27] MED LIST changes: +AMPICILLIN SOD 2 GM in D5W MINI-BAG PLUS 100 ML IV SCH; +BUPIVACAINE/EPIN 0.25% 30 ML VIAL As Ordered ONE; +FLUO20CA20 PO; -FLUO20CA8 PO; +LIDOCAINE 1% MDV 20ML VIAL SQ PRN; +LR 1,000 ML IV ONE; -SIMV40TA2 PO; +SIMV40TA20 PO
[2019-04-27 07:59] LABS: HEMOGLOBIN 13.4 g/dl (12.0-15.5); MEAN CORPUSCULAR HEMOGLOBIN 30.4 pg (27.0-33.0); MEAN CORPUSCULAR HGB CONC 31.9 g/dl (32.0-36.5); MEAN CORPUSCULAR VOLUME 95.2 fl (80.0-96.0); PLATELET COUNT, AUTOMATED 263 10^3/uL (150-450); RED BLOOD COUNT 4.41 10^6/uL (4.00-5.40); WHITE BLOOD COUNT 9.5 10^3/uL (4.0-10.0)
[2019-04-27] MEDS ORDERED: ceFAZolin 2 GM/D5W 50 ML IV BAG (J0690 PER 500MG) As Ordered ONE (08:00)
[2019-04-27] MEDS ORDERED: fentaNYL 250 MCG/5 ML INJECTION (J3010) As Ordered ONE (08:01)
[2019-04-27] MEDS ORDERED: ROCURONIUM BROMIDE 50 MG/5 ML VIAL As Ordered ONE ×2 (08:01→10:18)
[2019-04-27] MEDS ORDERED: PROPOFOL 200 MG/20 ML VIAL As Ordered ONE (08:01)
[2019-04-27] MEDS ORDERED: LIDOCAINE 2% INJ 100 MG/5 ML SDV (FOR ANES.) As Ordered ONE (08:01)
[2019-04-27] MEDS ORDERED: MIDAZOLAM INJ 2 MG/2 ML VIAL (J2250) As Ordered ONE (08:01)
[2019-04-27] MEDS ORDERED: ceFAZolin SOD 2 GM in IV 1 EA IV ONE (09:00)
[2019-04-27] MEDS ORDERED: dexameTHASONE 4 MG/ML 1ML VIAL (J1100) As Ordered ONE (09:38)
[2019-04-27] MEDS ORDERED: ACETAMINOPHEN 1000MG 100ML IV BTL (OFIRMEV) (J0131 PER 10MG) As Ordered ONE (10:03)
[2019-04-27] MEDS ORDERED: KETOROLAC 60 MG/2 ML VIAL (J1885) As Ordered ONE (10:03)
[2019-04-27] MEDS ORDERED: METOCLOPRAMIDE INJ 10MG/2ML VIAL (J2765) As Ordered ONE (10:03)
[2019-04-27] MEDS ORDERED: ONDANSETRON 4MG/2ML VIAL (J2405) As Ordered ONE ×2 (10:03→10:52)
[2019-04-27] MEDS ORDERED: SUGAMMADEX SODIUM 500 MG/5 ML VIAL (BRIDION) As Ordered ONE (10:04)
[2019-04-27] MEDS ORDERED: fentaNYL 100 MCG/2 ML INJECTION (J3010) As Ordered ONE ×2 (10:22→10:53)
[2019-04-27] MEDS ORDERED: PERCOCET 5MG/325MG TAB As Ordered ONE (10:53)
[2019-04-27] MEDS: fentaNYL 100 MCG/2 ML INJECTION (J3010) IV PRN ×4 (10:55→11:10)
[2019-04-27] MEDS ORDERED: HYDROMORPHONE HCL 0.5 MG/ 0.5 ML SYRINGE (J1170 PER 1) IV PRN (11:00)
[2019-04-27] MEDS ORDERED: LR 1,000 ML IV SCH (11:00)
[2019-04-27] MEDS: PERCOCET 5MG/325MG TAB PO PRN ×2 (11:00→11:30)
[2019-04-27] MEDS ORDERED: ONDANSETRON 4MG/2ML VIAL (J2405) IV PRN (11:00)
[2019-04-27] MEDS ORDERED: NORCO, ANEXSIA 5/325MG TABLET (HYDROcodone/ACETAMINOPHEN) PO PRN (12:01)
[2019-04-27 13:25] VITALS: BP 130/71
--- NOTE | 2019-04-27 14:34 | RO ---
DATE OF PROCEDURE: 04/27/2019 PREPROCEDURE DIAGNOSIS: Incarcerated incisional hernia. POSTOPERATIVE DIAGNOSIS: Incarcerated incisional hernia. PROCEDURE: Robotic repair of incarcerated incisional hernia. SURGEON: Dr. Mosqueda PUBLIC ADDRESS SYSTEM MECHANIC: None. ANESTHESIA: General. ESTIMATED BLOOD LOSS: 5 COMPLICATIONS: None. INDICATIONS FOR PROCEDURE: The patient is a 58-year-old female who presents with a large ventral epigastric incisional hernia that is nonreducible. This was secondary to a port site from a previous cholecystectomy. Recommendation was to proceed with robotic repair. Risks and benefits of the procedure not limited but including bleeding, infection, hernia recurrence, hernia formation, damage to surrounding structures, need for further surgery were discussed in detail with the patient, informed consent was obtained, and procedure was planned. DESCRIPTION OF PROCEDURE: The patient brought back to operating room 7. After sufficient sedation, the abdomen was sterilely prepped and draped. Next time-out was done to confirm proper patient and proper procedure. Following that, an 8 mm incision was made in the left lower quadrant, Veress needle inserted, and abdomen was insufflated to 50 mmHg. Next, Veress needle was removed and an 8 mm OptiView port was used to gain access to the abdomen. Once the abdomen was entered, under direct visualization, two more ports were placed in a straight line from the right upper quadrant to just inferior to the umbilicus. Once the ports were placed, the robot was docked. Next, from the console, the peritoneum was incised and the inferior portion of the falciform ligament. This was then dissected free superiorly until the hernia site was encountered. The hernia was then completely reduced. Once it was completely reduced, the defect was closed with 0 Stratafix suture. Once that was completed, 5 cm round piece of Prograf mesh was placed over top of the defect. The peritoneum was then closed over top of the mesh using a running 2-0 V-Loc. Once that was completed, the abdomen was desufflated. Skin incisions closed with 4-0 Vicryl subcuticular sutures. The abdomen was cleaned and dried. Steri-Strips, 4x4 and tape were applied, thus ending procedure.
== END 2019-04-27 13:26 | disposition home or self-care (01) ==
LOC: M SDC 07:27
PROVIDERS: ATTEND Surgery
DX: K43.0 Incisional hernia with obstruction, without gangrene (principal); I10 Essential (primary) hypertension; F32.9 Major depressive disorder, single episode, unspecified; R00.2 Palpitations; E78.1 Pure hyperglyceridemia; Z79.899 Other long term (current) drug therapy; F17.210 Nicotine dependence, cigarettes, uncomplicated; Z88.8 Allergy status to other drugs, medicaments and biological substances
CPT/HCPCS: 36415; 49655; 85027; C1781; J0131; J0690; J1100; J1885; J2250; J2405; J2765; J3010

== ENCOUNTER → 2019-05-21 | Outpatient (CLI) | payer OTHER ==
[~2019-05-21] MED LIST changes: -AMPICILLIN SOD 2 GM in D5W MINI-BAG PLUS 100 ML IV SCH; -BUPIVACAINE/EPIN 0.25% 30 ML VIAL As Ordered ONE; -LIDOCAINE 1% MDV 20ML VIAL SQ PRN; -LR 1,000 ML IV ONE
[2019-05-21 11:50] LABS: CHOLESTEROL RISK RATIO 3.212 (<5); URIC ACID 10.4 MG/DL (2.6-6.0)
[2019-05-21 11:58] LABS: TOTAL 25(OH) VITAMIN D 49.8 NG/ML (30.0-100.0)
[2019-05-21 12:21] LABS: MALB URINE SIEMENS 8.5 MG/L; MAU/CREAT RATIO 7.4 MCG/MG (0.0-30.0)
[2019-05-21 12:35] LABS: HEMOGLOBIN A1c 6.9 %
== END ==
LOC: M WUC 09:01
PROVIDERS: ATTEND Nurse Practitioner Family
DX: E78.5 Hyperlipidemia, unspecified (principal); M10.9 Gout, unspecified; E55.9 Vitamin D deficiency, unspecified; E08.69 Diabetes mellitus due to underlying condition with other specified complication

== ENCOUNTER → 2019-08-20 | Outpatient (REF) | payer OTHER ==
[2019-08-20 11:51] LABS: HEMATOCRIT 42.1 % (36.0-47.0); HEMOGLOBIN 13.2 g/dl (12.0-15.5); MEAN CORPUSCULAR HEMOGLOBIN 30.2 pg (27.0-33.0); MEAN CORPUSCULAR HGB CONC 31.4 g/dl (32.0-36.5); MEAN CORPUSCULAR VOLUME 96.3 fl (80.0-96.0); PLATELET COUNT, AUTOMATED 285 10^3/uL (150-450); RED BLOOD COUNT 4.37 10^6/uL (4.00-5.40); WHITE BLOOD COUNT 7.3 10^3/uL (4.0-10.0)
[2019-08-20 12:13] LABS: ALBUMIN 3.8 GM/DL (3.2-5.2); BILIRUBIN,TOTAL 0.4 MG/DL (0.2-1.0); CALCIUM LEVEL 9.4 MG/DL (8.5-10.1); CHOLESTEROL RISK RATIO 2.716 (<5); CREATININE FOR GFR 1.21 MG/DL (0.55-1.30); GLOMERULAR FILTRATION RATE 48.7 (>51); POTASSIUM SERUM 4.3 MEQ/L (3.5-5.1); TOTAL 25(OH) VITAMIN D 53.4 NG/ML (30.0-100.0); TOTAL PROTEIN 7.3 GM/DL (6.4-8.2); URIC ACID 6.5 MG/DL (2.6-6.0)
[2019-08-20 12:28] LABS: MALB URINE SIEMENS 11.3 MG/L
== END ==
LOC: M SFHCCLAY 08:08
PROVIDERS: ATTEND Nurse Practitioner Family
DX: E78.5 Hyperlipidemia, unspecified (principal); E08.69 Diabetes mellitus due to underlying condition with other specified complication; E79.0 Hyperuricemia without signs of inflammatory arthritis and tophaceous disease; E55.9 Vitamin D deficiency, unspecified

== ENCOUNTER 2019-12-21 14:07 | Emergency (ER) | payer OTHER ==
[~2019-12-21] VITALS: Ht 167.6 cm; Wt 128.2 kg
[~2019-12-21 14:07] MED LIST changes: -AMLO10TA5 PO; +AMLO1TAB25 PO; +PANT40TA29 PO; -PANT40TA3 PO
[2019-12-21] MEDS ORDERED: VITA50005 PO (14:23)
[2019-12-21] MEDS ORDERED: METF10004 PO (14:23)
[2019-12-21 15:15] LABS: BASO % 0.5 % (0.0-1.0); EOS # 0.3 10^3/uL (0.0-0.5); EOS % 3.7 % (0.0-3.0); HEMATOCRIT 34.3 % (36.0-47.0); HEMOGLOBIN 11.2 g/dl (12.0-15.5); LYMPH # 2.4 10^3/uL (1.5-5.0); LYMPH % 27.5 % (24.0-44.0); MEAN CORPUSCULAR HEMOGLOBIN 31.7 pg (27.0-33.0); MEAN CORPUSCULAR HGB CONC 32.7 g/dl (32.0-36.5); MEAN CORPUSCULAR VOLUME 97.2 fl (80.0-96.0); MONO # 0.6 10^3/uL (0.0-0.8); MONO % 6.7 % (0.0-5.0); NEUTROPHILS # 5.4 10^3/uL (1.5-8.5); NEUTROPHILS % 61.4 % (36.0-66.0); PLATELET COUNT, AUTOMATED 266 10^3/uL (150-450); RED BLOOD COUNT 3.53 10^6/uL (4.00-5.40); WHITE BLOOD COUNT 8.9 10^3/uL (4.0-10.0)
[2019-12-21 15:34] LABS: CALCIUM LEVEL 9.2 MG/DL (8.5-10.1); CREATININE FOR GFR 1.69 MG/DL (0.55-1.30); POTASSIUM SERUM 4.3 MEQ/L (3.5-5.1)
--- NOTE | 2019-12-21 16:06 | REPVR ---
PROCEDURE INFORMATION: Exam: XR Chest, 1 View Exam date and time: 12/21/2019 2:30 PM Age: 59 years old Clinical indication: Chest pain; Type not specified TECHNIQUE: Imaging protocol: XR of the chest Views: 1 view. COMPARISON: No relevant prior studies available. FINDINGS: Lungs: Mild linear atelectasis or scarring in the left lateral lung base. No confluent consolidation. Pleural space: Unremarkable. No pleural effusion. No pneumothorax. Heart/Mediastinum: Unremarkable. No cardiomegaly. Vasculature: Calcification of the thoracic aorta. Bones/joints: Degenerative change of the spine. IMPRESSION: No acute cardiopulmonary abnormality Electronically signed by: Aditi Zavaleta On 12/21/2019 16:06:17 PM
[2019-12-21] MEDS ORDERED: NS 1,000 ML IV ONE (16:15)
--- NOTE | 2019-12-21 16:22 | REPVR ---
PROCEDURE INFORMATION: Exam: CT Chest Without Contrast Exam date and time: 12/21/2019 3:44 PM Age: 59 years old Clinical indication: Chest pain; Additional info: Chest pain/effusion TECHNIQUE: Imaging protocol: Computed tomography of the chest without contrast. 3D rendering (Not supervised by radiologist): MIP and/or 3D reconstructed images were created by the technologist. Radiation optimization: All CT scans at this facility use at least one of these dose optimization techniques: automated exposure control; mA and/or kV adjustment per patient size (includes targeted exams where dose is matched to clinical indication); or iterative reconstruction. COMPARISON: CR PORTABLE CHEST X-RAY 12/21/2019 2:24 PM FINDINGS: Limitations: Lack of intravenous contrast material limits evaluation of the vascular and visceral structures. Lungs: Noncalcified 3 mm right middle lobe pulmonary nodule (series 202, image 46). Noncalcified 2 mm right middle lobe pulmonary nodule (series 202, image 52). Noncalcified 2 mm left upper lobe pulmonary nodule (series 202, image 31). Noncalcified 2 mm left upper lobe pulmonary nodule (series 202 image 46). Pleural space: Unremarkable. No pneumothorax. No pleural effusion. Heart: Unremarkable. No cardiomegaly. No pericardial effusion. Aorta: Mild atherosclerotic calcification of the thoracic aorta. Lymph nodes: Unremarkable. No enlarged lymph nodes. Liver: Diffuse hepatic steatosis. Gallbladder and bile ducts: There has been a cholecystectomy. Adrenals: 14 mm benign left adrenal adenoma. Bones/joints: Degenerative change of the spine. Soft tissues: Unremarkable. IMPRESSION: 1. No acute chest abnormality. 2. Noncalcified 2 mm and 3 mm pulmonary nodules. Recommend comparison with any prior CT examinations that are available. If none are available, recommend followup according to Fleischner criteria. 3. Diffuse hepatic steatosis. COMMENTS: Consistent with the [employer]'s Incidental Findings Committee white paper (J Am David Radiol 2017): For any incidental adrenal lesion greater than 1.0 cm but less than 4.0 cm classified in this report as benign, likely benign, or containing fat (including classification as an adenoma or myelolipoma), no follow-up imaging is recommended per consensus recommendations based on imaging criteria. Further lab evaluation could be pursued if warranted based on clinical findings. Electronically signed by: Aditi Zavaleta On 12/21/2019 16:22:07 PM
[2019-12-21 20:08] VITALS: BP 143/68
--- NOTE | 2020-01-12 11:59 | ECGEPIP ---
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
--- NOTE | 2020-01-12 12:01 | ECGEPIP ---
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
== END 2019-12-21 20:10 | disposition home or self-care (01) ==
LOC: M ED 14:07
DX: R07.89 Other chest pain (principal); E86.0 Dehydration; R91.1 Solitary pulmonary nodule; E78.5 Hyperlipidemia, unspecified; I10 Essential (primary) hypertension; K76.0 Fatty (change of) liver, not elsewhere classified; Z79.84 Long term (current) use of oral hypoglycemic drugs; Z79.899 Other long term (current) drug therapy

== ENCOUNTER → 2019-12-25 | Outpatient (CLI) | payer OTHER ==
[~2019-12-25] MED LIST changes: +METF10004 PO; +VITA50005 PO
[2019-12-25 15:33] LABS: HEMATOCRIT 37.6 % (36.0-47.0); HEMOGLOBIN 11.8 g/dl (12.0-15.5); MEAN CORPUSCULAR HEMOGLOBIN 30.9 pg (27.0-33.0); MEAN CORPUSCULAR HGB CONC 31.4 g/dl (32.0-36.5); MEAN CORPUSCULAR VOLUME 98.4 fl (80.0-96.0); PLATELET COUNT, AUTOMATED 267 10^3/uL (150-450); RED BLOOD COUNT 3.82 10^6/uL (4.00-5.40); WHITE BLOOD COUNT 8.9 10^3/uL (4.0-10.0)
[2019-12-25 15:54] LABS: CREATININE FOR GFR 1.33 MG/DL (0.55-1.30)
[2019-12-25 15:55] LABS: ALBUMIN 3.8 GM/DL (3.2-5.2); BILIRUBIN,TOTAL 0.3 MG/DL (0.2-1.0); CALCIUM LEVEL 9.7 MG/DL (8.5-10.1); CHOLESTEROL RISK RATIO 3.016 (<5); GLOMERULAR FILTRATION RATE 43.5 (>51); MAGNESIUM LEVEL 2.2 MG/DL (1.8-2.4); POTASSIUM SERUM 5.2 MEQ/L (3.5-5.1); TOTAL PROTEIN 7.1 GM/DL (6.4-8.2); URIC ACID 6.7 MG/DL (2.6-6.0)
[2019-12-25 16:02] LABS: TOTAL 25(OH) VITAMIN D 56.9 NG/ML (30.0-100.0)
[2019-12-25 16:06] LABS: MALB URINE SIEMENS 9.4 MG/L; MAU/CREAT RATIO 4.9 MCG/MG (0.0-30.0)
[2019-12-25 16:07] LABS: HEMOGLOBIN A1c 6.3 %
== END ==
LOC: M WUC 10:38
PROVIDERS: ATTEND Nurse Practitioner Family
DX: E11.9 Type 2 diabetes mellitus without complications (principal); I10 Essential (primary) hypertension; E78.5 Hyperlipidemia, unspecified; E55.9 Vitamin D deficiency, unspecified; M10.00 Idiopathic gout, unspecified site

== ENCOUNTER → 2020-01-27 | Outpatient (REF) | payer OTHER | LOC: M SFHCCLAY 15:42 | PROVIDERS: ATTEND Nurse Practitioner Family | DX: R35.0 Frequency of micturition (principal) ==

== ENCOUNTER → 2020-02-03 | Outpatient (CLI) | payer OTHER ==
[2020-02-03 10:51] LABS: CREATININE FOR GFR 1.69 MG/DL (0.55-1.30)
== END ==
LOC: M WUC 08:24
PROVIDERS: ATTEND Internal Medicine Cardiovascular Disease
DX: Z01.818 Encounter for other preprocedural examination (principal)

== ENCOUNTER → 2020-02-23 | Outpatient (CLI) | payer OTHER ==
[2020-02-23 11:12] LABS: ALBUMIN 3.5 GM/DL (3.2-5.2); CALCIUM LEVEL 9.3 MG/DL (8.5-10.1); CREATININE FOR GFR 1.16 MG/DL (0.55-1.30); GLOMERULAR FILTRATION RATE 50.9 (>51); PHOSPHORUS LEVEL 3.4 MG/DL (2.5-4.9); POTASSIUM SERUM 4.8 MEQ/L (3.5-5.1)
== END ==
LOC: M WUC 08:16
PROVIDERS: ATTEND Nurse Practitioner Family
DX: N28.9 Disorder of kidney and ureter, unspecified (principal)

== ENCOUNTER → 2020-02-23 | Outpatient (CLI) | payer OTHER ==
[2020-02-23 10:30] LABS: COLLAGEN EPINEPHRINE 122 SECONDS (74-162)
[2020-02-23 10:49] LABS: PLATELET COUNT, AUTOMATED 290 10^3/uL (150-450)
[2020-02-23 10:57] LABS: INR 0.95; PROTHROMBIN TIME 12.9 SECONDS (12.5-14.3)
[2020-02-23 10:58] LABS: PARTIAL THROMBOPLASTIN TIME 27.7 SECONDS (24.2-38.5)
== END ==
LOC: M WUC 08:20
PROVIDERS: ATTEND Physician Assistant
DX: M47.817 Spondylosis without myelopathy or radiculopathy, lumbosacral region (principal)

== ENCOUNTER → 2020-02-24 | Outpatient (CLI) | payer OTHER | LOC: M LABSMTC 11:39 | PROVIDERS: ATTEND Physical Medicine & Rehabilitation | DX: Z11.59 Encounter for screening for other viral diseases (principal) ==

== ENCOUNTER → 2020-03-31 | Outpatient (CLI) | payer OTHER ==
[2020-03-31 13:53] LABS: ALBUMIN 3.7 GM/DL (3.2-5.2); BILIRUBIN,TOTAL 0.4 MG/DL (0.2-1.0); CALCIUM LEVEL 9.3 MG/DL (8.5-10.1); CHOLESTEROL RISK RATIO 2.368 (<5); CREATININE FOR GFR 1.27 MG/DL (0.55-1.30); GLOMERULAR FILTRATION RATE 45.9 (>51); POTASSIUM SERUM 5.3 MEQ/L (3.5-5.1)
[2020-03-31 13:58] LABS: MALB URINE SIEMENS 9.3 MG/L; MAU/CREAT RATIO 5.6 MCG/MG (0.0-30.0)
[2020-03-31 14:01] LABS: HEMOGLOBIN A1c 6.9 %
== END ==
LOC: M WUC 09:24
PROVIDERS: ATTEND Nurse Practitioner Family
DX: E11.9 Type 2 diabetes mellitus without complications (principal); E78.5 Hyperlipidemia, unspecified

== ENCOUNTER → 2020-04-13 | Outpatient (CLI) | payer OTHER | LOC: M LABSMTC 13:03 | PROVIDERS: ATTEND Physical Medicine & Rehabilitation | DX: Z01.812 Encounter for preprocedural laboratory examination (principal); Z20.828 Contact with and (suspected) exposure to other viral communicable diseases ==

== ENCOUNTER → 2020-07-08 | Outpatient (REF) | payer OTHER ==
[~2020-07-08] MED LIST changes: +HYDR-3490 PO; -HYDR25TAB PO; -LISI40TA PO; +LISI40TA4 PO
[2020-07-08 14:10] LABS: CHOLESTEROL RISK RATIO 2.708 (<5); URIC ACID 7.1 MG/DL (2.6-6.0)
[2020-07-08 14:21] LABS: MALB URINE SIEMENS 16.2 MG/L; MAU/CREAT RATIO 6.9 MCG/MG (0.0-30.0)
[2020-07-08 15:12] LABS: HEMOGLOBIN A1c 6.4 %
[2020-07-08 18:32] LABS: TOTAL 25(OH) VITAMIN D 64.2 NG/ML (30.0-100.0)
== END ==
LOC: M LAB REF 12:30
PROVIDERS: ATTEND Nurse Practitioner Family
DX: M10.9 Gout, unspecified (principal); E55.9 Vitamin D deficiency, unspecified; E08.69 Diabetes mellitus due to underlying condition with other specified complication

== ENCOUNTER → 2020-08-05 | Outpatient (CLI) | payer OTHER ==
[~2020-08-05] MED LIST changes: +ALOG6.25; +ASPI81TA27 PO; +MAGN64TASA PO; +PROZ10CA7 PO; +PROZ40CA PO
== END ==
LOC: M LABSMTC 11:58
PROVIDERS: ATTEND Anesthesiology
DX: Z01.818 Encounter for other preprocedural examination (principal); Z20.822 Contact with and (suspected) exposure to COVID-19

== ENCOUNTER 2020-08-10 11:06 | Day surgery (SDC) | payer OTHER ==
[~2020-08-10] VITALS: Ht 170.2 cm; Wt 135.5 kg
[~2020-08-10 11:06] MED LIST changes: +NS 1,000 ML IV ONE
--- NOTE | 2020-08-10 12:22 | ROOR ---
Patient Name: Obdulio Chin Procedure Date: 08/10/2020 11:55 AM Date of : 1960 Age: 59 Room: [facility] Gender: Female Note Status: Finalized Procedure: Colonoscopy Indications: Hematochezia Providers: DO Angy Lubin MD: Dorothy Baldwin NP Requesting Provider: Medicines: Propofol per Anesthesia Complications: No immediate complications. Procedure: Pre-Anesthesia Assessment: - Prior to the procedure, a History and Physical was performed, and patient medications and allergies were reviewed. The patient is competent. The risks and benefits of the procedure and the sedation options and risks were discussed with the patient. All questions were answered and informed consent was obtained. Patient identification and proposed procedure were verified by the physician, the nurse, the sign installer and the bulk mail technician in the endoscopy suite. Mental Status Examination: alert and oriented. Airway Examination: normal oropharyngeal airway and neck mobility. Respiratory Examination: clear to auscultation. CV Examination: normal. Prophylactic Antibiotics: The patient does not require prophylactic antibiotics. Prior Anticoagulants: The patient has taken no previous anticoagulant or antiplatelet agents. ASA Grade Assessment: III - A patient with severe systemic disease. After reviewing the risks and benefits, the patient was deemed in satisfactory condition to undergo the procedure. The anesthesia plan was to use monitored anesthesia care (MAC). Immediately prior to administration of medications, the patient was re-assessed for adequacy to receive sedatives. The heart rate, respiratory rate, oxygen saturations, blood pressure, adequacy of pulmonary ventilation, and response to care were monitored throughout the procedure. The physical status of the patient was re-assessed after the procedure. The Colonoscope was introduced through the anus and advanced to the cecum, identified by appendiceal orifice and ileocecal valve. The colonoscopy was performed without difficulty. The patient tolerated the procedure well. Findings: Non-bleeding internal hemorrhoids were found during retroflexion. The hemorrhoids were moderate, large and Grade II (internal hemorrhoids that prolapse but reduce spontaneously). Scattered small-mouthed diverticula were found in the sigmoid colon, descending colon and transverse colon. Estimated blood loss: none. A less than 5 mm polyp was found in the transverse colon. The polyp was hyperplastic. The polyp was removed with a jumbo cold forceps. Resection and retrieval were complete. Impression: - Non-bleeding internal hemorrhoids. - Diverticulosis in the sigmoid colon, in the descending colon and in the transverse colon. - One less than 5 mm polyp in the transverse colon, removed with a jumbo cold forceps. Resected and retrieved. Recommendation: - Patient has a contact number available for emergencies. The signs and symptoms of potential delayed complications were discussed with the patient. Return to normal activities tomorrow. Written discharge instructions were provided to the patient. - Repeat colonoscopy in 3 - 5 years for surveillance based on pathology results. - Return to my office at appointment to be scheduled. Procedure Code(s): --- Professional --- 06904, Colonoscopy, flexible; with biopsy, single or multiple Diagnosis Code(s): --- Professional --- K64.1, Second degree hemorrhoids K63.5, Polyp of colon K92.1, Melena (includes Hematochezia) K57.30, Diverticulosis of large intestine without perforation or abscess without bleeding CPT copyright 2019 [employer]. All rights reserved. The codes documented in this report are preliminary and upon mail carriers supervisor review may be revised to meet current compliance requirements. Milton Mosqueda, 08/10/2020 12:21:55 PM Electronically signed by Milton Mosqueda DO Number of Addenda: 0 Note Initiated On: 08/10/2020 11:55 AM Estimated Blood Loss: Estimated blood loss was minimal.
[2020-08-10] MEDS ORDERED: propofoL 200 MG/20 ML VIAL As Ordered ONE ×2 (12:24→12:26)
[2020-08-10] MEDS ORDERED: LIDOCAINE 2% 100MG/5ML SDV (FOR ANES.) As Ordered ONE (12:24)
[2020-08-10 12:37] VITALS: BP 103/54
== END 2020-08-10 12:38 | disposition home or self-care (01) ==
LOC: M OPP 11:06
PROVIDERS: ATTEND Surgery
DX: K63.5 Polyp of colon (principal); K57.30 Diverticulosis of large intestine without perforation or abscess without bleeding; K64.1 Second degree hemorrhoids; K92.1 Melena; E11.9 Type 2 diabetes mellitus without complications; Z80.0 Family history of malignant neoplasm of digestive organs; Z79.82 Long term (current) use of aspirin; Z79.899 Other long term (current) drug therapy; Z87.891 Personal history of nicotine dependence

== ENCOUNTER → 2020-09-02 | Outpatient (CLI) | payer OTHER ==
[~2020-09-02] MED LIST changes: -NS 1,000 ML IV ONE
--- NOTE | 2020-09-02 09:27 | REP ---
INDICATION: SOLITARY PULMONARY NODULE COMPARISON: None TECHNIQUE: Axial noncontrast images from the thoracic inlet to the upper abdomen with coronal and sagittal reformations. This CT examination was performed using the following dose reduction techniques: Automated exposure control, adjustment of mA and/or kv according to the patient's size, and use of iterative reconstruction technique. FINDINGS: The bilateral lung reynolds demonstrate mild chronic age-related changes and stable 2-3 mm noncalcified nodules. No acute consolidation, new significant nodule or mass lesion. No effusion. No pneumothorax. Tracheobronchial tree is patent. Mediastinum demonstrates atherosclerotic changes to the thoracic aorta and coronary arteries. No aortic aneurysm or cardiomegaly. No pericardial effusion. Thyroid gland is relatively normal/stable. Surrounding musculoskeletal structures are intact and without acute osseous abnormality. Limited upper abdomen demonstrates normal bilateral adrenal glands and evidence for prior cholecystectomy IMPRESSION: Stable chronic changes and stable small scattered nodules up to 3 mm. No acute mediastinal or pleuroparenchymal process appreciated. <Electronically signed by Martín Garcia > 09/02/20 [id number]
== END ==
LOC: M RAD 08:43
PROVIDERS: ATTEND Nurse Practitioner Family
DX: R91.1 Solitary pulmonary nodule (principal)

== ENCOUNTER → 2020-10-27 | Outpatient (CLI) | payer OTHER ==
[~2020-10-27] MED LIST changes: +ERGO500029 PO; -VITA50005 PO
[2020-10-27 16:23] LABS: PLATELET COUNT, AUTOMATED 269 10^3/uL (150-450)
[2020-10-27 16:39] LABS: INR 0.92; PARTIAL THROMBOPLASTIN TIME 27.4 SECONDS (24.2-38.5); PROTHROMBIN TIME 12.5 SECONDS (12.5-14.3)
== END ==
LOC: M WUC 13:44
PROVIDERS: ATTEND Physical Medicine & Rehabilitation
DX: M47.817 Spondylosis without myelopathy or radiculopathy, lumbosacral region (principal)

== ENCOUNTER → 2020-11-14 | Outpatient (CLI) | payer OTHER ==
[2020-11-14 10:07] LABS: HEMOGLOBIN A1c 6.6 %
[2020-11-14 10:12] LABS: CHOLESTEROL RISK RATIO 2.971 (<5); URIC ACID 7.7 MG/DL (2.6-6.0)
[2020-11-14 10:20] LABS: TOTAL 25(OH) VITAMIN D 67.5 NG/ML (30.0-100.0)
[2020-11-14 10:31] LABS: MALB URINE SIEMENS 7.1 MG/L; MAU/CREAT RATIO 3.8 MCG/MG (0.0-30.0)
== END ==
LOC: M WUC 08:05
PROVIDERS: ATTEND Nurse Practitioner Family
DX: M10.9 Gout, unspecified (principal); E08.69 Diabetes mellitus due to underlying condition with other specified complication; E55.9 Vitamin D deficiency, unspecified; E78.5 Hyperlipidemia, unspecified

== ENCOUNTER → 2020-12-09 | Outpatient (CLI) | payer OTHER ==
[2020-12-09 09:43] LABS: BASO % 0.4 % (0.0-1.0); EOS # 0.2 10^3/uL (0.0-0.5); EOS % 2.5 % (0.0-3.0); HEMATOCRIT 42.9 % (36.0-47.0); HEMOGLOBIN 13.4 g/dl (12.0-15.5); LYMPH # 2.3 10^3/uL (1.5-5.0); LYMPH % 30.9 % (24.0-44.0); MEAN CORPUSCULAR HEMOGLOBIN 29.7 pg (27.0-33.0); MEAN CORPUSCULAR HGB CONC 31.2 g/dl (32.0-36.5); MEAN CORPUSCULAR VOLUME 95.1 fl (80.0-96.0); MONO # 0.6 10^3/uL (0.0-0.8); NEUTROPHILS # 4.2 10^3/uL (1.5-8.5); NEUTROPHILS % 58.1 % (36.0-66.0); PLATELET COUNT, AUTOMATED 276 10^3/uL (150-450); RED BLOOD COUNT 4.51 10^6/uL (4.00-5.40); WHITE BLOOD COUNT 7.3 10^3/uL (4.0-10.0)
[2020-12-09 10:13] LABS: C REACTIVE PROTEIN QUANTITATIV 0.58 MG/DL (0.00-0.30); RHEUMATOID FACTOR QUANT < 10.0 IU/ML (<15.0); URIC ACID 8.9 MG/DL (2.6-6.0)
[2020-12-09 10:20] LABS: ERYTHROCYTE SEDIMENTATION RATE 29 mm/hr (0-30)
== END ==
LOC: M WUC 08:04
PROVIDERS: ATTEND Physician Assistant Surgical
DX: M48.07 Spinal stenosis, lumbosacral region (principal)

== ENCOUNTER → 2020-12-15 | Outpatient (REF) | payer OTHER | LOC: M SFHCCAPE 08:53 | PROVIDERS: ATTEND Physician Assistant | DX: Z12.4 Encounter for screening for malignant neoplasm of cervix (principal) ==

== ENCOUNTER → 2021-01-09 | Outpatient (REF) | payer OTHER | LOC: M LAB REF 17:01 | PROVIDERS: ATTEND Internal Medicine Nephrology | DX: E83.42 Hypomagnesemia (principal) ==

== ENCOUNTER → 2021-02-24 | Outpatient (CLI) | payer OTHER ==
--- NOTE | 2021-02-24 16:51 | REPMRS ---
Patient History The patient states she has not had a clinical breast exam in over a year. Family history of colorectal cancer at age 47 in brother, breast cancer at age 68 in paternal aunt, breast cancer at age 53 in maternal aunt, colorectal cancer in maternal cousin, colorectal cancer in maternal cousin, colorectal cancer in maternal uncle. Took hormonal contraceptives for 2 years. Patient states no breast complaints today. Patient has signed MRS History Sheet. Digital Woman Screen Mammo: February 24, 2021 - Exam #: [id number] Bilateral CC and MLO view(s) were taken. Technologist: Gayla Santiago, Technologist Prior study comparison: January 30, 2018, bilateral digital woman screen mammo performed at [facility] and [facility]. December 13, 2011, bilateral bilat screen digital mammo, performed at [facility] ([facility] FINDINGS: The breast tissue is almost entirely fat. Screening. Digital screening (2D) mammography was performed bilaterally in the CC and MLO projections. Additionally, breast tomosynthesis (3D mammography) was performed bilaterally in the CC and MLO projections. Todays exam was compared to the prior exam/exams. By history, the patient has no complaints of a palpable breast abnormality or other significant breast complaints. The Volpara volumetric breast density category is A, the breasts are almost entirely fatty. The breasts are unchanged in size and shape. There are no jorge l-soft tissue densities or spiculated masses. There is no internal architectural distortion. There are no suspicious jorge l-calcific clusters. Skin thickening or nipple retraction is not present. IMPRESSION: BI-RADS Category 2- Benign Findings. There is no evidence of malignant alteration of the breasts. Followup examination recommended in one year. The lifetime Tyrer-Cuzick score is 15.6% This mammogram was read with the assistance of [employer],an FDA approved computer aided detection system for mammography. Negative x-ray reports should not delay surgical consultation if a dominant or clinically suspicious mass is present. Not all breast cancers can be identified by mammography. Therefore, we recommend that you continue to perform regular breast self-examination and physical examination and then promptly contact your physician of any concerns or changes. Adenosis and dense breasts may obscure an underlying neoplasm. No significant changes when compared with prior studies. Assessment: BI-RADS/ACR category 2 mammogram. Benign Findings. Recommendation Routine screening mammogram of both breasts in 1 year. Electronically Signed By: Abhilash Clifton MD 02/24/21 [id number]
== END ==
LOC: M WHC 14:38
PROVIDERS: ATTEND Physician Assistant
DX: Z12.31 Encounter for screening mammogram for malignant neoplasm of breast (principal)

== ENCOUNTER → 2021-05-03 | Outpatient (CLI) | payer OTHER ==
--- NOTE | 2021-05-03 11:29 | REP ---
INDICATION: RT WRIST PAIN. COMPARISON: None. TECHNIQUE: Three views FINDINGS: There is no acute fracture or destructive osseous lesion. There is a cyst in the distal pole the scaphoid. IMPRESSION: No acute osseous abnormality <Electronically signed by Tyler De La Rosa > 05/03/21 0095
== END ==
LOC: M SOG 11:12
PROVIDERS: ATTEND Orthopaedic Surgery Hand Surgery
DX: M65.4 Radial styloid tenosynovitis [de Quervain] (principal); M25.531 Pain in right wrist

== ENCOUNTER → 2021-05-10 | Outpatient (CLI) | payer OTHER ==
[~2021-05-10] MED LIST changes: +FLUO-96 PO; -FLUO20CA20 PO
[2021-05-10 09:46] LABS: BASO % 0.4 % (0.0-1.0); EOS # 0.2 10^3/uL (0.0-0.5); EOS % 3.2 % (0.0-3.0); HEMATOCRIT 43.6 % (36.0-47.0); HEMOGLOBIN 13.7 g/dl (12.0-15.5); LYMPH # 1.8 10^3/uL (1.5-5.0); LYMPH % 25.2 % (24.0-44.0); MEAN CORPUSCULAR HEMOGLOBIN 29.9 pg (27.0-33.0); MEAN CORPUSCULAR HGB CONC 31.4 g/dl (32.0-36.5); MEAN CORPUSCULAR VOLUME 95.2 fl (80.0-96.0); MONO # 0.5 10^3/uL (0.0-0.8); MONO % 6.5 % (2.0-8.0); NEUTROPHILS # 4.6 10^3/uL (1.5-8.5); NEUTROPHILS % 64.6 % (36.0-66.0); PLATELET COUNT, AUTOMATED 254 10^3/uL (150-450); RED BLOOD COUNT 4.58 10^6/uL (4.00-5.40); WHITE BLOOD COUNT 7.2 10^3/uL (4.0-10.0)
[2021-05-10 10:31] LABS: ALBUMIN 3.5 GM/DL (3.2-5.2); BILIRUBIN,TOTAL 0.4 MG/DL (0.2-1.0); CALCIUM LEVEL 9.2 MG/DL (8.8-10.2); CHOLESTEROL RISK RATIO 2.512 (<5); CREATININE FOR GFR 1.22 MG/DL (0.55-1.30); GLOMERULAR FILTRATION RATE 47.9 (>45); POTASSIUM SERUM 4.3 MEQ/L (3.5-5.1); THYROID STIMULATING HORMONE 1.08 uIU/ML (0.358-3.740); URIC ACID 6.8 MG/DL (2.6-6.0)
[2021-05-10 10:32] LABS: TOTAL 25(OH) VITAMIN D 54.4 NG/ML (30.0-100.0)
[2021-05-10 11:15] LABS: HEMOGLOBIN A1c 6.4 %
== END ==
LOC: M WUC 08:07
PROVIDERS: ATTEND Physician Assistant
DX: E78.5 Hyperlipidemia, unspecified (principal); E08.69 Diabetes mellitus due to underlying condition with other specified complication; E55.9 Vitamin D deficiency, unspecified; I10 Essential (primary) hypertension

== ENCOUNTER → 2021-05-15 | Outpatient (REF) | payer OTHER | LOC: M SFHCCAPE 09:17 | PROVIDERS: ATTEND Physician Assistant | DX: R74.8 Abnormal levels of other serum enzymes (principal) ==

== ENCOUNTER → 2021-05-22 | Outpatient (CLI) | payer OTHER | LOC: M RAD 09:09 | PROVIDERS: ATTEND Physician Assistant | DX: R74.8 Abnormal levels of other serum enzymes (principal); R16.0 Hepatomegaly, not elsewhere classified ==

== ENCOUNTER → 2021-05-24 | Outpatient (CLI) | payer OTHER | LOC: M LABSMTC 09:33 | PROVIDERS: ATTEND Anesthesiology | DX: Z20.828 Contact with and (suspected) exposure to other viral communicable diseases (principal); Z11.52 Encounter for screening for COVID-19 ==

== ENCOUNTER 2021-05-29 06:04 | Day surgery (SDC) | payer OTHER ==
[~2021-05-29] VITALS: Ht 170.2 cm; Wt 139.4 kg
[2021-05-29] MEDS ORDERED: LIDOCAINE W/EPINEPHRINE 1% 20ML VIAL As Ordered ONE (06:29)
[2021-05-29] MEDS ORDERED: SODIUM BICARBONATE 8.4% INJ 50MEQ 50 ML VIAL As Ordered ONE (06:30)
[2021-05-29] MEDS ORDERED: FAT EMULSION 20% 500ML As Ordered ONE ×2 (07:22→07:30)
[2021-05-29] MEDS ORDERED: SODIUM BICARBONATE 8.4% INJ 50MEQ 50 ML VIAL XX ONE (07:30)
[2021-05-29] MEDS ORDERED: LIDOCAINE W/EPINEPHRINE 1% 20ML VIAL XX ONE (07:30)
[2021-05-29] MEDS ORDERED: BACITRACIN OINTMENT 30GM TUBE As Ordered ONE (07:50)
[2021-05-29] MEDS ORDERED: TRAM50TA2 PO (08:16)
[2021-05-29] MEDS ORDERED: NAPR-885 PO (08:16)
[2021-05-29 08:24] VITALS: BP 173/82
== END 2021-05-29 08:25 | disposition home or self-care (01) ==
LOC: M SDC 06:04
PROVIDERS: ATTEND Orthopaedic Surgery Hand Surgery
DX: M65.4 Radial styloid tenosynovitis [de Quervain] (principal); M65.331 Trigger finger, right middle finger; I10 Essential (primary) hypertension; E78.00 Pure hypercholesterolemia, unspecified; F32.9 Major depressive disorder, single episode, unspecified; E11.9 Type 2 diabetes mellitus without complications; R00.2 Palpitations; M54.9 Dorsalgia, unspecified; R06.83 Snoring; Z79.899 Other long term (current) drug therapy; Z79.84 Long term (current) use of oral hypoglycemic drugs; Z79.82 Long term (current) use of aspirin; Z87.891 Personal history of nicotine dependence

== ENCOUNTER → 2021-11-08 | Outpatient (CLI) | payer OTHER ==
[~2021-11-08] MED LIST changes: +NAPR-885 PO; +TRAM50TA2 PO
[2021-11-08 12:04] LABS: BASO % 0.6 % (0.0-1.0); EOS # 0.8 10^3/uL (0.0-0.5); EOS % 10.9 % (0.0-3.0); HEMOGLOBIN 13.4 g/dl (12.0-15.5); LYMPH # 1.7 10^3/uL (1.5-5.0); LYMPH % 23.9 % (24.0-44.0); MEAN CORPUSCULAR HGB CONC 31.9 g/dl (32.0-36.5); MEAN CORPUSCULAR VOLUME 97.2 fl (80.0-96.0); MONO # 0.4 10^3/uL (0.0-0.8); MONO % 5.4 % (2.0-8.0); NEUTROPHILS # 4.2 10^3/uL (1.5-8.5); NEUTROPHILS % 58.8 % (36.0-66.0); PLATELET COUNT, AUTOMATED 249 10^3/uL (150-450); RED BLOOD COUNT 4.32 10^6/uL (4.00-5.40); WHITE BLOOD COUNT 7.1 10^3/uL (4.0-10.0)
[2021-11-08 15:18] LABS: CREATININE FOR GFR 1.16 MG/DL (0.55-1.30); GLOMERULAR FILTRATION RATE 50.6 (>45)
[2021-11-08 15:19] LABS: ALBUMIN 3.6 GM/DL (3.2-5.2); BILIRUBIN,TOTAL 0.7 MG/DL (0.2-1.0); CALCIUM LEVEL 9.2 MG/DL (8.8-10.2); CHOLESTEROL RISK RATIO 2.888 (<5); POTASSIUM SERUM 4.2 MEQ/L (3.5-5.1); THYROID STIMULATING HORMONE 0.688 uIU/ML (0.358-3.740); TOTAL PROTEIN 6.9 GM/DL (6.4-8.2); URIC ACID 7.7 MG/DL (2.6-6.0)
[2021-11-08 16:07] LABS: TOTAL 25(OH) VITAMIN D 47.6 NG/ML (30.0-100.0)
[2021-11-08 22:22] LABS: HEMOGLOBIN A1c 6.5 %
== END ==
LOC: M WUC 08:07
PROVIDERS: ATTEND Physician Assistant
DX: E55.9 Vitamin D deficiency, unspecified (principal); M10.9 Gout, unspecified; E08.69 Diabetes mellitus due to underlying condition with other specified complication

== ENCOUNTER → 2022-03-06 | Outpatient (REF) | payer OTHER ==
[2022-03-06 17:56] LABS: BASO # 0.1 10^3/uL (0.0-0.2); BASO % 0.8 % (0.0-1.0); EOS # 0.2 10^3/uL (0.0-0.5); EOS % 2.4 % (0.0-3.0); LYMPH # 1.6 10^3/uL (1.5-5.0); LYMPH % 25.2 % (24.0-44.0); MEAN CORPUSCULAR HGB CONC 31.1 g/dl (32.0-36.5); MEAN CORPUSCULAR VOLUME 96.6 fl (80.0-96.0); MONO # 0.3 10^3/uL (0.0-0.8); MONO % 5.4 % (2.0-8.0); NEUTROPHILS # 4.2 10^3/uL (1.5-8.5); PLATELET COUNT, AUTOMATED 276 10^3/uL (150-450); RED BLOOD COUNT 4.66 10^6/uL (4.00-5.40); WHITE BLOOD COUNT 6.3 10^3/uL (4.0-10.0)
[2022-03-06 18:43] LABS: ALBUMIN 3.7 GM/DL (3.2-5.2); ALT/SGPT 18 U/L (12-78); BILIRUBIN,TOTAL 0.4 MG/DL (0.2-1.0); BLOOD UREA NITROGEN 16 MG/DL (7-18); C REACTIVE PROTEIN QUANTITATIV 0.35 MG/DL (0.00-0.30); CALCIUM LEVEL 9.8 MG/DL (8.8-10.2); CARBON DIOXIDE LEVEL 25 MEQ/L (21-32); CHLORIDE LEVEL 103 MEQ/L (98-107); CREATININE FOR GFR 1.12 MG/DL (0.55-1.30); GLOMERULAR FILTRATION RATE 52.7 (>45); GLUCOSE, FASTING 136 MG/DL (70-100); POTASSIUM SERUM 4.3 MEQ/L (3.5-5.1); RHEUMATOID FACTOR QUANT < 10.0 IU/ML (<15.0); SODIUM LEVEL 135 MEQ/L (136-145); TOTAL PROTEIN 7.2 GM/DL (6.4-8.2); URIC ACID 6.7 MG/DL (2.6-6.0)
[2022-03-06 18:56] LABS: ERYTHROCYTE SEDIMENTATION RATE 22 mm/hr (0-30)
[2022-03-06 19:14] LABS: TOTAL 25(OH) VITAMIN D 67.4 NG/ML (30.0-100.0); VITAMIN B12 LEVEL 377 PG/ML
[2022-03-06 20:27] LABS: HEMOGLOBIN A1c 6.1 %
== END ==
LOC: M SFHCCAPE 10:55
PROVIDERS: ATTEND Physician Assistant
DX: M25.641 Stiffness of right hand, not elsewhere classified (principal); E55.9 Vitamin D deficiency, unspecified; E08.69 Diabetes mellitus due to underlying condition with other specified complication; M10.9 Gout, unspecified; M25.642 Stiffness of left hand, not elsewhere classified

== ENCOUNTER → 2022-05-04 | Outpatient (CLI) | payer OTHER ==
[2022-05-04 12:23] LABS: BASO # 0.1 10^3/uL (0.0-0.2); BASO % 0.7 % (0.0-1.0); EOS # 0.2 10^3/uL (0.0-0.5); EOS % 2.9 % (0.0-3.0); HEMATOCRIT 45.4 % (36.0-47.0); MEAN CORPUSCULAR HEMOGLOBIN 29.8 pg (27.0-33.0); MEAN CORPUSCULAR HGB CONC 30.8 g/dl (32.0-36.5); MEAN CORPUSCULAR VOLUME 96.6 fl (80.0-96.0); MONO # 0.5 10^3/uL (0.0-0.8); MONO % 6.4 % (2.0-8.0); NEUTROPHILS # 4.8 10^3/uL (1.5-8.5); NEUTROPHILS % 63.7 % (36.0-66.0); PLATELET COUNT, AUTOMATED 293 10^3/uL (150-450); WHITE BLOOD COUNT 7.5 10^3/uL (4.0-10.0)
[2022-05-04 12:56] LABS: C REACTIVE PROTEIN QUANTITATIV 0.5 MG/DL (<1.0); PERCENT SATURATION 21.7 % (13.2-45.0)
[2022-05-04 12:57] LABS: BILIRUBIN,TOTAL 0.5 MG/DL (0.3-1.2); CALCIUM LEVEL 9.7 MG/DL (8.3-10.6); CREATININE FOR GFR 1.12 MG/DL (0.55-1.30); GLOMERULAR FILTRATION RATE 52.7 (>45); POTASSIUM SERUM 4.4 MMOL/L (3.5-5.1); TOTAL PROTEIN 7.4 G/DL (5.7-8.2)
[2022-05-04 12:59] LABS: FERRITIN 62.7 NG/ML (7.3-270.7)
[2022-05-05 16:08] LABS: ANTI-MITOCHONDRIAL ANTIBODY <20.0 Units (0.0-20.0); ANTINUCLEAR ANTIBODIES DIRECT Negative (Negative); TISSUE TRANSGLUTAMINASE IgA <2 U/mL (0-3)
== END ==
LOC: M WUC 10:09
PROVIDERS: ATTEND Internal Medicine Gastroenterology
DX: R94.5 Abnormal results of liver function studies (principal)

== ENCOUNTER → 2022-05-17 | Outpatient (REF) | payer OTHER | LOC: M SFHCCAPE 15:39 | PROVIDERS: ATTEND Physician Assistant | DX: H60.01 Abscess of right external ear (principal) ==

== ENCOUNTER → 2022-06-14 | Outpatient (REF) | payer OTHER | LOC: M LAB REF 17:20 | PROVIDERS: ATTEND Otolaryngology | DX: H61.891 Other specified disorders of right external ear (principal) ==

== ENCOUNTER → 2022-11-07 | Outpatient (CLI) | payer OTHER ==
[2022-11-07 12:56] LABS: HEMOGLOBIN A1c 6.3 % (4.0-6.0)
[2022-11-07 12:57] LABS: CREATININE, URINE 111.8 MG/DL; MALB URINE SIEMENS < 3.0 MG/L; MAU/CREAT RATIO 2.6 MCG/MG (0.0-30.0)
[2022-11-07 12:58] LABS: ALBUMIN 3.7 G/DL (3.2-5.2); BILIRUBIN,TOTAL 0.5 MG/DL (0.3-1.2); CALCIUM LEVEL 10.4 MG/DL (8.3-10.6); CREATININE FOR GFR 1.11 MG/DL (0.55-1.30); TOTAL PROTEIN 6.9 G/DL (5.7-8.2)
== END ==
LOC: M WUC 08:48
PROVIDERS: ATTEND Physician Assistant
DX: E11.9 Type 2 diabetes mellitus without complications (principal); E08.69 Diabetes mellitus due to underlying condition with other specified complication

== ENCOUNTER → 2023-05-10 | Outpatient (CLI) | payer OTHER ==
[2023-05-10 10:07] LABS: BASO % 0.4 % (0.0-1.0); EOS # 0.2 10^3/uL (0.0-0.5); EOS % 3.6 % (0.0-3.0); HEMATOCRIT 43.9 % (36.0-47.0); HEMOGLOBIN 13.9 g/dl (12.0-15.5); LYMPH # 2.1 10^3/uL (1.5-5.0); LYMPH % 37.1 % (24.0-44.0); MEAN CORPUSCULAR HGB CONC 31.7 g/dl (32.0-36.5); MEAN CORPUSCULAR VOLUME 94.6 fl (80.0-96.0); MONO # 0.4 10^3/uL (0.0-0.8); MONO % 7.3 % (2.0-8.0); NEUTROPHILS # 2.9 10^3/uL (1.5-8.5); NEUTROPHILS % 51.4 % (36.0-66.0); PLATELET COUNT, AUTOMATED 279 10^3/uL (150-450); RED BLOOD COUNT 4.64 10^6/uL (4.00-5.40); WHITE BLOOD COUNT 5.6 10^3/uL (4.0-10.0)
[2023-05-10 10:23] LABS: HEMOGLOBIN A1c 6.5 % (4.0-6.0)
[2023-05-10 10:31] LABS: ALBUMIN 3.6 G/DL (3.2-5.2); BILIRUBIN,TOTAL 0.5 MG/DL (0.3-1.2); CALCIUM LEVEL 9.2 MG/DL (8.3-10.6); CHOLESTEROL RISK RATIO 2.75 (<5); CREATININE FOR GFR 1.2 MG/DL (0.55-1.30); GLOMERULAR FILTRATION RATE 48.5 (>45); HDL CHOLESTEROL 62.1 MG/DL (>40); LDL CHOLESTEROL 77.3 MG/DL (<100); NON-HDL-C 108.9 MG/DL; POTASSIUM SERUM 4.6 MMOL/L (3.5-5.1); TOTAL PROTEIN 6.8 G/DL (5.7-8.2)
[2023-05-10 10:34] LABS: TOTAL 25(OH) VITAMIN D 78.1 NG/ML (20.0-100.0)
== END ==
LOC: M WUC 08:21
PROVIDERS: ATTEND Physician Assistant
DX: I10 Essential (primary) hypertension (principal); E78.5 Hyperlipidemia, unspecified; E11.69 Type 2 diabetes mellitus with other specified complication; E55.9 Vitamin D deficiency, unspecified

== ENCOUNTER → 2023-06-14 | Outpatient (CLI) | payer OTHER | LOC: M RAD 16:26 | PROVIDERS: ATTEND Physician Assistant Medical | DX: Z12.11 Encounter for screening for malignant neoplasm of colon (principal); F17.211 Nicotine dependence, cigarettes, in remission ==

== ENCOUNTER → 2023-07-30 | Outpatient (CLI) | payer OTHER | LOC: M WUC 10:09 | PROVIDERS: ATTEND Physician Assistant Medical | DX: M25.552 Pain in left hip (principal); M54.42 Lumbago with sciatica, left side; M47.896 Other spondylosis, lumbar region ==

== ENCOUNTER → 2023-11-13 | Outpatient (CLI) | payer OTHER ==
[2023-11-13 12:29] LABS: BASO % 0.5 % (0.0-1.0); EOS # 0.2 10^3/uL (0.0-0.5); EOS % 2.3 % (0.0-3.0); HEMATOCRIT 43.4 % (36.0-47.0); HEMOGLOBIN 13.9 g/dl (12.0-15.5); LYMPH # 2.2 10^3/uL (1.5-5.0); LYMPH % 33.1 % (24.0-44.0); MEAN CORPUSCULAR HEMOGLOBIN 31.1 pg (27.0-33.0); MEAN CORPUSCULAR VOLUME 97.1 fl (80.0-96.0); MONO # 0.4 10^3/uL (0.0-0.8); MONO % 6.5 % (2.0-8.0); NEUTROPHILS # 3.8 10^3/uL (1.5-8.5); NEUTROPHILS % 57.4 % (36.0-66.0); PLATELET COUNT, AUTOMATED 257 10^3/uL (150-450); RED BLOOD COUNT 4.47 10^6/uL (4.00-5.40); WHITE BLOOD COUNT 6.6 10^3/uL (4.0-10.0)
[2023-11-13 12:43] LABS: HEMOGLOBIN A1c 6.7 % (4.0-6.0)
[2023-11-13 13:03] LABS: CREATININE, URINE 163.2 MG/DL
[2023-11-13 13:06] LABS: MAU/CREAT RATIO 4.2 MCG/MG (0.0-30.0)
[2023-11-13 13:07] LABS: ALBUMIN 3.7 G/DL (3.2-5.2); BILIRUBIN,TOTAL 0.5 MG/DL (0.3-1.2); CALCIUM LEVEL 9.5 MG/DL (8.3-10.6); CHOLESTEROL RISK RATIO 2.96 (<5); CREATININE FOR GFR 1.1 MG/DL (0.55-1.30); GLOMERULAR FILTRATION RATE 53.4 (>45); LDL CHOLESTEROL 79.2 MG/DL (<100); POTASSIUM SERUM 4.2 MMOL/L (3.5-5.1); TOTAL PROTEIN 6.8 G/DL (5.7-8.2)
[2023-11-13 13:08] LABS: THYROID STIMULATING HORMONE 1.301 uIU/ML (0.55-4.78)
== END ==
LOC: M WUC 09:49
PROVIDERS: ATTEND Physician Assistant Medical
DX: N18.31 Chronic kidney disease, stage 3a (principal); E08.69 Diabetes mellitus due to underlying condition with other specified complication

== ENCOUNTER → 2024-01-15 | Outpatient (CLI) | payer OTHER | LOC: M WHC 12:51 | PROVIDERS: ATTEND Physician Assistant Medical | DX: Z12.31 Encounter for screening mammogram for malignant neoplasm of breast (principal) ==

== ENCOUNTER → 2024-05-15 | Outpatient (CLI) | payer OTHER ==
[2024-05-15 12:43] LABS: BASO % 0.4 % (0.0-1.0); EOS # 0.3 10^3/uL (0.0-0.5); EOS % 4.8 % (0.0-3.0); HEMATOCRIT 45.1 % (36.0-47.0); HEMOGLOBIN 14.4 g/dl (12.0-15.5); LYMPH # 1.2 10^3/uL (1.5-5.0); LYMPH % 17.9 % (24.0-44.0); MEAN CORPUSCULAR HEMOGLOBIN 30.4 pg (27.0-33.0); MEAN CORPUSCULAR HGB CONC 31.9 g/dl (32.0-36.5); MEAN CORPUSCULAR VOLUME 95.3 fl (80.0-96.0); MONO # 0.6 10^3/uL (0.0-0.8); MONO % 9.2 % (2.0-8.0); NEUTROPHILS # 4.6 10^3/uL (1.5-8.5); NEUTROPHILS % 67.4 % (36.0-66.0); PLATELET COUNT, AUTOMATED 207 10^3/uL (150-450); RED BLOOD COUNT 4.73 10^6/uL (4.00-5.40); WHITE BLOOD COUNT 6.9 10^3/uL (4.0-10.0)
[2024-05-15 13:12] LABS: ALBUMIN 3.7 G/DL (3.2-5.2); BILIRUBIN,TOTAL 0.8 MG/DL (0.3-1.2); CHOLESTEROL RISK RATIO 2.58 (<5); CREATININE FOR GFR 1.19 MG/DL (0.55-1.30); GLOMERULAR FILTRATION RATE 48.8 (>45); HDL CHOLESTEROL 68.2 MG/DL (>40); LDL CHOLESTEROL 63.6 MG/DL (<100); NON-HDL-C 107.8 MG/DL; POTASSIUM SERUM 4.3 MMOL/L (3.5-5.1); TOTAL PROTEIN 6.9 G/DL (5.7-8.2)
[2024-05-15 13:17] LABS: HEMOGLOBIN A1c 6.7 % (4.0-6.0)
== END ==
LOC: M WUC 09:06
PROVIDERS: ATTEND Physician Assistant Medical
DX: R74.8 Abnormal levels of other serum enzymes (principal); F32.9 Major depressive disorder, single episode, unspecified; E78.5 Hyperlipidemia, unspecified; E08.69 Diabetes mellitus due to underlying condition with other specified complication; I10 Essential (primary) hypertension

== ENCOUNTER → 2024-06-18 | Outpatient (CLI) | payer OTHER | LOC: M SOG 07:55 | PROVIDERS: ATTEND Orthopaedic Surgery | DX: M79.644 Pain in right finger(s) (principal) ==

== ENCOUNTER 2024-06-24 07:52 | Day surgery (SDC) | payer OTHER ==
[~2024-06-24] VITALS: Ht 167.6 cm; Wt 139.6 kg
[~2024-06-24 07:52] MED LIST changes: +JARD1TAB PO; +TIRZ5PEN SQ
[2024-06-24] MEDS: SODIUM BICARBONATE 8.4% INJ 50MEQ 50ML VIAL XX ONE (08:45)
[2024-06-24] MEDS: LIDOCAINE W/EPINEPHRINE 1% 20ML VIAL XX ONE (08:45)
[2024-06-24] MEDS ORDERED: POLYSPORIN TOPICAL OINTMENT 15GM As Ordered ONE (09:39)
[2024-06-24 10:31] VITALS: BP 141/70; TEMP 97.4; O2SAT 100
== END 2024-06-24 10:45 | disposition home or self-care (01) ==
LOC: M SDC 07:52
PROVIDERS: ATTEND Orthopaedic Surgery Hand Surgery
DX: M65.321 Trigger finger, right index finger (principal); I10 Essential (primary) hypertension; E78.5 Hyperlipidemia, unspecified; E11.9 Type 2 diabetes mellitus without complications; Z79.899 Other long term (current) drug therapy; F32.A Depression, unspecified

== ENCOUNTER 2024-07-13 18:16 | Emergency (ER) | payer OTHER ==
[~2024-07-13] VITALS: Ht 170.2 cm; Wt 137.2 kg
[2024-07-13 18:50] LABS: BASO % 0.4 % (0.0-1.0); EOS # 0.1 10^3/uL (0.0-0.5); EOS % 1.5 % (0.0-3.0); HEMATOCRIT 46.7 % (36.0-47.0); HEMOGLOBIN 15.2 g/dl (12.0-15.5); LYMPH # 1.7 10^3/uL (1.5-5.0); LYMPH % 24.6 % (24.0-44.0); MEAN CORPUSCULAR HEMOGLOBIN 30.6 pg (27.0-33.0); MEAN CORPUSCULAR HGB CONC 32.5 g/dl (32.0-36.5); MONO # 0.4 10^3/uL (0.0-0.8); MONO % 6.4 % (2.0-8.0); NEUTROPHILS # 4.6 10^3/uL (1.5-8.5); NEUTROPHILS % 66.8 % (36.0-66.0); PLATELET COUNT, AUTOMATED 228 10^3/uL (150-450); RED BLOOD COUNT 4.97 10^6/uL (4.00-5.40); WHITE BLOOD COUNT 6.8 10^3/uL (4.0-10.0)
[2024-07-13 19:03] LABS: INR 0.93; PROTHROMBIN TIME 12.8 SECONDS (12.5-14.5)
[2024-07-13 19:31] LABS: LIPASE 30 U/L (12-53)
[2024-07-13 19:33] LABS: ALBUMIN 3.6 G/DL (3.2-5.2); ALKALINE PHOSPHATASE 124 U/L (35-104); ALT/SGPT 16 U/L (7.0-40); AST/SGOT 21 U/L (<34); BILIRUBIN,DIRECT 0.2 MG/DL (<0.4); BILIRUBIN,TOTAL 0.6 MG/DL (0.3-1.2); BLOOD UREA NITROGEN 14 MG/DL (9-23); CALCIUM LEVEL 9.4 MG/DL (8.3-10.6); CARBON DIOXIDE LEVEL 25 MMOL/L (20-31); CHLORIDE LEVEL 105 MMOL/L (98-107); CK-MB VALUE MASS < 1.0 NG/ML (<3.6); CREATININE FOR GFR 1.11 MG/DL (0.55-1.30); GLOMERULAR FILTRATION RATE 52.8 (>45); GLUCOSE, FASTING 123 MG/DL (74-106); POTASSIUM SERUM 4.1 MMOL/L (3.5-5.1); SODIUM LEVEL 140 MMOL/L (136-145); TOTAL PROTEIN 6.8 G/DL (5.7-8.2)
[2024-07-13 19:34] LABS: CPK CREATINE PHOSPHOKINASE 71 U/L (34-145)
[2024-07-13] MEDS ORDERED: ISOVUE-370 76% 100ML VIAL As Ordered ONE (21:03)
[2024-07-13] MEDS: ASPIRIN 81MG CHEW TABLET PO ONE (21:29)
[2024-07-13 21:48] LABS: CK-MB VALUE MASS < 1.0 NG/ML (<3.6)
[2024-07-13 21:51] LABS: CPK CREATINE PHOSPHOKINASE 69 U/L (34-145); MB/CK RELATIVE INDEX 1.44 (< OR =4)
[2024-07-13 23:53] VITALS: BP 132/69; TEMP 97.3; O2SAT 100
== END 2024-07-13 23:50 | disposition home or self-care (01) ==
LOC: M ED 18:16
DX: R07.9 Chest pain, unspecified (principal); G25.81 Restless legs syndrome; I10 Essential (primary) hypertension; E78.5 Hyperlipidemia, unspecified; E66.9 Obesity, unspecified; Z87.891 Personal history of nicotine dependence; F10.10 Alcohol abuse, uncomplicated; Z79.02 Long term (current) use of antithrombotics/antiplatelets; Z79.899 Other long term (current) drug therapy; Z79.1 Long term (current) use of non-steroidal anti-inflammatories (NSAID)
CPT/HCPCS: 36415; 71045; 71275; 80053; 82248; 82550; 82553; 83690; 84484; 85025; 85610; 93005; 99284; Q9967

== ENCOUNTER → 2024-07-21 | Outpatient (CLI) | payer OTHER ==
[2024-07-21 17:57] LABS: BASO # 0.1 10^3/uL (0.0-0.2); BASO % 0.6 % (0.0-1.0); EOS # 0.1 10^3/uL (0.0-0.5); EOS % 1.8 % (0.0-3.0); HEMATOCRIT 49.5 % (36.0-47.0); HEMOGLOBIN 15.7 g/dl (12.0-15.5); LYMPH # 2.5 10^3/uL (1.5-5.0); LYMPH % 32.7 % (24.0-44.0); MEAN CORPUSCULAR HEMOGLOBIN 30.5 pg (27.0-33.0); MEAN CORPUSCULAR HGB CONC 31.7 g/dl (32.0-36.5); MEAN CORPUSCULAR VOLUME 96.3 fl (80.0-96.0); MONO # 0.5 10^3/uL (0.0-0.8); MONO % 6.9 % (2.0-8.0); NEUTROPHILS # 4.5 10^3/uL (1.5-8.5); NEUTROPHILS % 57.7 % (36.0-66.0); PLATELET COUNT, AUTOMATED 251 10^3/uL (150-450); RED BLOOD COUNT 5.14 10^6/uL (4.00-5.40); WHITE BLOOD COUNT 7.7 10^3/uL (4.0-10.0)
[2024-07-21 18:03] LABS: INR 0.9; PARTIAL THROMBOPLASTIN TIME 26.7 SECONDS (24.8-34.2); PROTHROMBIN TIME 12.5 SECONDS (12.5-14.5)
[2024-07-21 18:24] LABS: CALCIUM LEVEL 9.7 MG/DL (8.3-10.6); CREATININE FOR GFR 1.15 MG/DL (0.55-1.30); GLOMERULAR FILTRATION RATE 50.7 (>45); POTASSIUM SERUM 4.4 MMOL/L (3.5-5.1)
== END ==
LOC: M WUC 14:01
PROVIDERS: ATTEND Physician Assistant Medical
DX: Z01.818 Encounter for other preprocedural examination (principal)

== ENCOUNTER 2024-09-01 09:51 | Emergency (ER) | payer OTHER ==
[~2024-09-01] VITALS: Ht 170.2 cm; Wt 128.4 kg
[2024-09-01] MEDS: NS (Normal Saline) 0.9% 1,000 ML IV ONE (12:51)
[2024-09-01 12:56] LABS: BASO % 0.3 % (0.0-1.0); EOS # 0.1 10^3/uL (0.0-0.5); HEMATOCRIT 49.9 % (36.0-47.0); HEMOGLOBIN 15.8 g/dl (12.0-15.5); LYMPH # 1.3 10^3/uL (1.5-5.0); LYMPH % 14.9 % (24.0-44.0); MEAN CORPUSCULAR HGB CONC 31.7 g/dl (32.0-36.5); MEAN CORPUSCULAR VOLUME 94.9 fl (80.0-96.0); MONO # 0.5 10^3/uL (0.0-0.8); MONO % 6.2 % (2.0-8.0); NEUTROPHILS # 6.7 10^3/uL (1.5-8.5); NEUTROPHILS % 77.4 % (36.0-66.0); PLATELET COUNT, AUTOMATED 263 10^3/uL (150-450); RED BLOOD COUNT 5.26 10^6/uL (4.00-5.40); WHITE BLOOD COUNT 8.7 10^3/uL (4.0-10.0)
[2024-09-01 13:02] LABS: ERYTHROCYTE SEDIMENTATION RATE 73 mm/hr (0-30)
[2024-09-01 13:33] LABS: C REACTIVE PROTEIN QUANTITATIV 0.56 MG/DL (<1.0)
[2024-09-01 13:34] LABS: ALBUMIN 4.1 G/DL (3.2-5.2); BILIRUBIN,TOTAL 0.6 MG/DL (0.3-1.2); CALCIUM LEVEL 10.3 MG/DL (8.3-10.6); CREATININE FOR GFR 1.15 MG/DL (0.55-1.30); GLOMERULAR FILTRATION RATE 53.2 (>45); POTASSIUM SERUM 4.4 MMOL/L (3.5-5.1); TOTAL PROTEIN 7.7 G/DL (5.7-8.2)
[2024-09-01 14:34] LABS: APPEARANCE, URINE CLOUDY (CLEAR); BACTERIA, URINE AUTO NEGATIVE (NEGATIVE); BILIRUBIN, URINE AUTO NEGATIVE (NEGATIVE); BLOOD, URINE BLOOD NEGATIVE (NEGATIVE); CALCIUM OXALATE CRYSTALS LARGE; COLOR, URINE YELLOW (YELLOW); GLUCOSE, URINE (UA) AUTO 3+ mg/dL (NEGATIVE); KETONE, URINE AUTO NEGATIVE (NEGATIVE); LEUKOCYTE ESTERASE, URINE AUTO NEGATIVE (NEGATIVE); MUCUS, URINE SMALL (NEGATIVE); NITRITE, URINE AUTO NEGATIVE (NEGATIVE); PROTEIN, URINE AUTO NEGATIVE (NEGATIVE); RBC, URINE AUTO 7 /HPF (0-3); SPECIFIC GRAVITY URINE AUTO 1.037 (1.002-1.035); SQUAMOUS EPITHELIAL CELL UR AU 10 /HPF (0-6); UROBILINOGEN, URINE AUTO 0.2 mg/dL (0.0-2.0); WBC, URINE AUTO 3 /HPF (0-3)
[2024-09-01 15:37] VITALS: BP 154/73; TEMP 97.1; O2SAT 97
== END 2024-09-01 15:46 | disposition home or self-care (01) ==
LOC: M ED 09:51
DX: R19.7 Diarrhea, unspecified (principal); E11.9 Type 2 diabetes mellitus without complications; I10 Essential (primary) hypertension; Z79.02 Long term (current) use of antithrombotics/antiplatelets; Z79.1 Long term (current) use of non-steroidal anti-inflammatories (NSAID); Z79.899 Other long term (current) drug therapy

== ENCOUNTER → 2025-01-18 | Outpatient (CLI) | payer OTHER ==
[~2025-01-18] MED LIST changes: +LISI40TA10 PO; -LISI40TA4 PO; +PROZ10CA11 PO; -PROZ10CA7 PO
== END ==
LOC: M WHC 12:28
PROVIDERS: ATTEND Physician Assistant Medical
DX: Z12.31 Encounter for screening mammogram for malignant neoplasm of breast (principal)